=== PATIENT | male | born 1935 | race American Indian/Alaskan Native ===

== ENCOUNTER 2017-04-04 08:40 | Emergency (ER) | payer MEDICARE ==
[2017-04-04 08:51] VITALS: BMI 23.3
[2017-04-04 09:05] VITALS: RESP 20
[2017-04-04 12:28] VITALS: BP 146/63; PULSE 85; TEMP 98.2; O2SAT 99
== END 2017-04-04 12:37 | disposition home or self-care (01) ==
LOC: C.ER 08:40
DX: N40.1 Benign prostatic hyperplasia with lower urinary tract symptoms (principal); R33.8 Other retention of urine

== ENCOUNTER 2017-05-02 06:12 | Inpatient (IN) | payer MEDICARE, MEDICAID ==
[2017-04-26 12:15] VITALS: BMI 22.1
[2017-05-02] MEDS ORDERED: cefTRIAXone IV 1 gm in Dextros 50 ML IVPB ONE (07:49)
[2017-05-02] MEDS ORDERED: Midazolam 2 MG/2 ML VIAL ONE (07:54)
[2017-05-02] MEDS ORDERED: Propofol 10 mg/ml Inj (20 ML) ONE (07:55)
[2017-05-02] MEDS ORDERED: Lactated Ringer's 1,000 ML IV ONE ×3 (08:00→11:30)
[2017-05-02] MEDS ORDERED: Gentamicin 80 mg in 0.9% NS 160 MG/200 ML BAG IVPB ONE (08:15)
[2017-05-02] MEDS ORDERED: Neostigmine Methylsulfate 3mg/3ml Syringe IV ONE (09:50)
[2017-05-02] MEDS: HYDROmorphone 0.5 mg/0.5 ml ISec IVP PRN ×4 (10:35→13:40)
--- NOTE | 2017-05-02 11:40 | PCM.SURG1 ---
Surgeon's Initial Post Op Note - Surgeon's Notes Surgeon: isaiah hinton Sub Plant Manager: kadie hinton Type of Anesthesia: General Endo Pre-Operative Diagnosis: urinary retention. bph Operative Findings: same Post-Operative Diagnosis: same Operation Performed: cystoscopy. sprapubic prostatectomy Specimen/Specimens Removed: urine. prostate Estimated Blood Loss: EBL {In ML}: 300 Blood Products Given: N/A Drains Used: Jayro Montez Post-Op Condition: Good Date of Surgery/Procedure: 05/02/17 Time of Surgery/Procedure: 10:00
--- NOTE | 2017-05-02 12:15 | CP.PCM.HP ---
<Logan Pinto - Last Filed: 05/02/17 15:06> History of Present Illness - History of Present Illness History of Present Illness: CC: "I'm recovering from surgery" HPI: This 81M with PMHx of BPH, Anemia, HTN, Renal Failure 2/2 urinary retention , HLD, DM, hx GI Bleed - sent to ED by daughter on 04/04/17 due to urinary retention 2/[address] Mcguire saw patient in the ED on 04/04, and plan was for patient to return home on a trial of Flomax, to be followed as an outpatient. He failed the Flomax trial, and returned to the ED today, 05/[address] Mcguire. Cystoscopy revealed severely enlarged prostate, leading to a successful suprapubic prostatectomy. He is recovering well, is receiving pain management, and admits his abdomen feels sore, rating the pain a 1/10. Of note, patient was seen at [facility] last month for renal failure secondary to BPH and urinary retention. He was in severe condition at that time, with a high level of acidosis requiring dialysis. Patient also c/o lower extremity swelling for the past week, since starting his new medication, Amlodipine 10mg PO qD. He denies any prior history of edema. Last BM was 2-3 days ago, however patient does not feel constipated. PMHx: BPH, Anemia, HTN, Renal Failure 2/2 urinary retention, HLD, DM, hx GI Bleed PSHx: suprapubic prostatectomy 05/02/17 Meds: see EMR Allergies: NKDA FamHx: Mom of appendicitis. Dad of pneumonia. SocHx: Tobacco 2ppd x8yrs (quit 1955); Denies ETOH or drug use. Lives in apartment alone, daughter lives down the road and visits. Ambulates with cane. Retired ict security specialist. PMD: none Review of Systems: -Gen: denies fever, chills, headache, lethargy, weakness. -HEENT: +dizziness; denies change in vision, change in hearing, sore throat, dysphagia, nasal congestion, mucous. -Cardio: denies chest pain, palpitations, lower extremity edema, orthopnea. -Resp: denies cough, dyspnea, hemoptysis, wheezing, pain on inspiration. -GI: +abdominal pain/soreness (1/10 pain), +nausea; denies vomiting, diarrhea/ constipation, hematochezia, hematemesis. -: +hx urinary frequency, +change in urinary stream; denies dysuria, incontinence. -MSK: denies back pain, muscle weakness, radiating pain. -Skin: denies itching, rash, lesions. -Neuro: denies confusion, numbness, tingling, focal weakness, radicular pain, syncope. -Psych: denies anxiety, depression, H/I, S/I, hallucinations. Present on Admission - Present on Admission Any Indicators Present on Admission: No Past Patient History - Past Medical History & Family History Past Medical History?: Yes - Past Social History Smoking Status: Former Smoker - CARDIAC Hx Cardiac Disorders: Yes Hx Hypertension: Yes - PULMONARY Hx Respiratory Disorders: No - NEUROLOGICAL Hx Neurological Disorder: Yes Other/Comment: HX: NEUROPATHY - HEENT Hx HEENT Problems: No - ENDOCRINE/METABOLIC Hx Endocrine Disorders: Yes Hx Diabetes Mellitus Type 2: Yes (SEE TEXT) Other/Comment: DAUGHTER SO DENIES DIABETES FOR PATIENT-"THEY SAID IT BUT HIS SUGAR WAS ALWAYS OK.."- NO DIABETIC MEDS. OF 04/26/17. - HEMATOLOGICAL/ONCOLOGICAL Hx Blood Disorders: Yes Hx Anemia: Yes Hx Blood Transfusions: Yes Hx Blood Transfusion Reaction: No - INTEGUMENTARY Hx Dermatological Problems: No - MUSCULOSKELETAL/RHEUMATOLOGICAL Hx Musculoskeletal Disorders: Yes Hx Unsteady Gait: Yes (PT. USES CANE) - GASTROINTESTINAL Hx Gastrointestinal Disorders: Yes Hx Gastroesophageal Reflux: Yes Other/Comment: HX: "GASTROINTESTIONAL HEMORRHAGE,UNSPECIFIED"AND PER THERESA LOJA NOT SURE IF UPPER ABD. OR LOWER ABD. BLEEDING. - GENITOURINARY/GYNECOLOGICAL Hx Genitourinary Disorders: Yes Hx Prostate Problems: Yes Other/Comment: HX:"OBSTRUCTIVE AND REFLUX UROPATHY,UNSPECIFIED". HX: URINARY RETENTION - PSYCHIATRIC Hx Substance Use: No - SURGICAL HISTORY Hx Surgeries: Yes Hx Herniorrhaphy: Yes (INGUINAL (?RIGHT SIDE)) - ANESTHESIA Hx Anesthesia: Yes Hx Anesthesia Reactions: No Meds Allergies/Adverse Reactions: Allergies Allergy/AdvReac Type Severity Reaction Status Date / Time No Known Allergies Allergy Verified 04/04/17 08:49 Physical Exam - Constitutional Appears: Non-toxic, No Acute Distress - Head Exam Head Exam: ATRAUMATIC, NORMAL INSPECTION - Eye Exam Eye Exam: EOMI, Normal appearance, PERRL Pupil Exam: NORMAL ACCOMODATION - ENT Exam ENT Exam: Mucous Membranes Dry - Neck Exam Neck exam: Positive for: Normal Inspection. Negative for: Lymphadenopathy, Tenderness - Respiratory Exam Respiratory Exam: Clear to Auscultation Bilateral, NORMAL BREATHING PATTERN. absent: Wheezes, Respiratory Distress - Cardiovascular Exam Cardiovascular Exam: REGULAR RHYTHM - GI/Abdominal Exam GI & Abdominal Exam: Diminished Bowel Sounds, Tenderness (mild, diffuse). absent: Distended, Firm - Exam Additional comments: CBI intact, light sanguineous output Bandages C/D/I. - Extremities Exam Extremities exam: Positive for: pedal edema (mild, 1+), pedal pulses present. Negative for: tenderness - Back Exam Back exam: NORMAL INSPECTION. absent: CVA tenderness (L), CVA tenderness (R), paraspinal tenderness - Neurological Exam Neurological exam: Alert, CN II-XII Intact, Normal Gait, Oriented x3, Reflexes Normal - Psychiatric Exam Psychiatric exam: Normal Affect, Normal Mood - Skin Skin Exam: Dry, Intact, Normal Color, Warm Results - Vital Signs Recent Vital Signs: Last Vital Signs Temp 96 F L 05/02/17 10:15 Pulse 88 05/02/17 10:15 Resp 9 L 05/02/17 10:15 BP 148/75 05/02/17 10:15 Pulse Ox 100 05/02/17 10:15 - Labs Result Diagrams: 05/02/17 13:09 05/02/17 13:09 Labs: Laboratory Results - last 24 hr 05/02/17 07:26 Blood Type A POSITIVE Blood Type Confirm A POSITIVE Antibody Screen Negative Assessment & Plan - Assessment and Plan (Free Text) Assessment: s/p Suprapubic Prostatectomy 2/2 BPH - Urology consult, Dr. Shae Mcguire, f/u recs - Cystoscopy revealed severely enlarged prostate with outflow obstruction - Rocephin 1Gm IVPB qD (start 05/03) - Morphine 4mg IVP Q4H PRN, pain moderate - Colace 100mg PO TID - LR 150cc/hr Hypertension - BP 137/70 - Continue Amlodipine 10mg qD in am. - Consider switching to alternate agent 2/2 mild LE edema - Cardiology Consult, Dr. Higgins, f/u recs - previously saw pt. and cleared for surgery. Lower extremity swelling - recent onset likely 2/2 starting Amlodipine 1 week ago. - f/u b/l LE dopplers Anemia - patients base line Hgb from prior [facility] visit is 8.9 - Continue Ferrous Sulfate 325mg PO qD (start in am) Hx Diabetes Mellitus - f/u A1c Hx Hyperlipidemia - hold crestor due to prior renal failure 2/2 BPH + urinary retention. - f/u FLP Prophylaxis -SCDs -C/I chemical anticoagulation 2/2 bleeding on CBI -MVI (home med) - Date & Time Date: 05/02/17 Time: 12:15 <Yun Rosenbaum V - Last Filed: 05/02/17 21:42> Results - Vital Signs Recent Vital Signs: Last Vital Signs Temp 98.2 F 05/02/17 18:41 Pulse 110 H 05/02/17 18:41 Resp 20 05/02/17 18:41 BP 144/66 05/02/17 18:41 Pulse Ox 100 05/02/17 18:41 - Labs Result Diagrams: 05/02/17 13:09 05/02/17 13:09 Labs: Laboratory Results - last 24 hr 05/02/17 05/02/17 05/02/17 07:26 12:25 13:09 WBC 9.1 RBC 2.98 L Hgb 8.6 L Hct 26.8 L MCV 89.9 MCH 28.9 MCHC 32.1 L RDW 16.0 H Plt Count 183 D MPV 9.1 Neut % (Auto) 72.3 Lymph % (Auto) 17.[address] [place] % (Auto) 7.8 Eos % (Auto) 2.3 Baso % (Auto) 0.5 Neut # 6.6 Lymph # 1.6 [place] # 0.7 Eos # 0.2 Baso # 0.0 Sodium Potassium Chloride Carbon Dioxide Anion Gap BUN Creatinine Est GFR ( Amer) Est GFR (Non-Af Amer) POC Glucose (mg/dL) Random Glucose Calcium Phosphorus Magnesium Total Bilirubin AST ALT Alkaline Phosphatase Total Protein Albumin Globulin Albumin/Globulin Ratio Urine Color Yellow Urine Clarity Hazy Urine pH 5.0 Ur Specific [place] 1.010 Urine Protein 1+ H Urine Glucose (UA) Normal Urine Ketones Negative Urine Blood 3+ H Urine Nitrate Negative Urine Bilirubin Negative Urine Urobilinogen Normal Ur Leukocyte Esterase 3+ H Urine WBC (Auto) 323 H Urine RBC (Auto) 58 H Urine WBC Clumps (Auto) Many H Urine Bacteria Occ H Blood Type A POSITIVE Blood Type Confirm A POSITIVE Antibody Screen Negative 05/02/17 05/02/17 13:09 16:42 WBC RBC Hgb Hct MCV MCH MCHC RDW Plt Count MPV Neut % (Auto) Lymph % (Auto) [place] % (Auto) Eos % (Auto) Baso % (Auto) Neut # Lymph # [place] # Eos # Baso # Sodium 141 Potassium 4.3 Chloride 103 Carbon Dioxide 26 Anion Gap 16 BUN 33 H Creatinine 2.0 H Est GFR ( Amer) 39 Est GFR (Non-Af Amer) 32 POC Glucose (mg/dL) 126 H Random Glucose 128 H Calcium 9.1 Phosphorus 5.9 H Magnesium 2.0 Total Bilirubin 0.7 AST 19 ALT 36 Alkaline Phosphatase 72 Total Protein 6.6 Albumin 3.0 L Globulin 3.6 Albumin/Globulin Ratio 0.8 L Urine Color Urine Clarity Urine pH Ur Specific [place] Urine Protein Urine Glucose (UA) Urine Ketones Urine Blood Urine Nitrate Urine Bilirubin Urine Urobilinogen Ur Leukocyte Esterase Urine WBC (Auto) Urine RBC (Auto) Urine WBC Clumps (Auto) Urine Bacteria Blood Type Blood Type Confirm Antibody Screen Attending/Attestation - Attestation I have personally seen and examined this patient.: Yes I have fully participated in the care of the patient.: Yes I have reviewed all pertinent clinical information: Yes Notes (Text): Patient seen, examined, and case discussed with day-time resident. Patient seen in PACU s/p suprapubic prostatectomy POD 0 for benign prostate hyperplasia causing obstructive uropathy and hx of urinary retention failing PO medications. Patient permits us to speak regarding his medical information in front of his daughter. Patient reports soreness over surgical site but remains in good spirits. Patient did not take any medications today. Patient reports he has b/l leg swelling limited to the ankles since prior hospitalization. Patient reports he was recently started on Norvasc; possible contributing side effect edema. Patient and patient's daughter at bedside confirm he does not have a PMD; but did see a cyber security consultant prior to procedure for clearance. Discussed with urology, patient had recent [facility] hospitalization including acute renal failure, severe acidosis; and recovered in spite of severity during hospitalization. Reviewed preoperative labs included in patient's chart: Hgb is low and Cr1.0; Repeat labs today. EBL: 400cc per discussion with PACU nurse. Nephrology consulted; given rise in Creatinine: 2.0, hx of obstructive uropathy , secondary to enlarged prostate Patient admitted under the hospitalist service. Urology on board. Will hold patient's norvasc given trace edema. Order LE venous duplex b/l rule out DVT. Hold anticoagulation secondary to history of GI bleed per review of the report. Patient's EF: above 60% noted in stress test prior to procedure. Assessment/Plan 1) Obstructive uropathy secondary to Enlarged Prostate s/p Suprapubic Prostatectomy POD 0 - Urology consult, Dr. Shae Mcguire; case discussed with urology - Nephrology consult, Dr. Abdalla-->f/u consult - Patient has aguillon in placed and currently on CBI per urology. - Cystoscopy revealed severely enlarged prostate with outflow obstruction - Rocephin 1Gm IVPB qD (start 05/03/17) - Morphine 4mg IVP Q4H PRN, pain moderate per urology - Colace 100mg PO TID - LR 150cc/hr -Surgery management regarding prostatectomy per urology (prepost/intraoperative/ postoperative) 2) Hypertension - BP 137/70 without BP medications - possible d/c Amlodipine 10mg qD given mild lower extremity edema; will reassess in AM - Cardiology Consult, Dr. Higgins, f/u recs - previously saw pt. and cleared for surgery. Stress test included in the chart 3) Lower extremity swelling - possible due to medication side effect: Norvasc - f/u b/l LE dopplers r/o DVT given recent hospitalization 4) Anemia, hx of Anemia - patients base line Hgb from prior [facility] visit is 8.9 - Continue Ferrous Sulfate 325mg PO qD (start in am) - No blood transfusion given during procedure 5) Hx Diabetes Mellitus - f/u A1c - Accuchecks QAC and HS 6) Hx Hyperlipidemia - hold crestor due to prior renal failure 2/2 BPH + urinary retention. - f/u FLP in AM 7) Prophylaxis -hold SCDs until dopplers are completed r/o dvt -C/I chemical anticoagulation 2/2 bleeding on CBI -MVI (home med)
[2017-05-02 12:38] LABS: RBC URINE 58 /hpf (0-3); URINE BACTERIA OCC (<OCC); URINE BILIRUBIN NEGATIVE (NEGATIVE); URINE BLOOD 3+ (NEGATIVE); URINE COLOR Yellow (YELLOW); URINE GLUCOSE (UA) NORMAL (Normal); URINE KETONE NEGATIVE (NEGATIVE); URINE LEUKOCYTE ESTERASE 3+ Leu/uL (Negative); URINE PROTEIN 1+ mg/dL (NEGATIVE); URINE UROBILINOGEN NORMAL mg/dL (0.2-1.0); WBC CLUMPS MANY /hpf; WBC URINE 323 /hpf (0-5)
[2017-05-02 13:26] LABS: BASO % 0.5 % (0.0-2.0); EOS # 0.2 K/uL (0.0-0.7); EOS % 2.3 % (0.0-4.0); HEMATOCRIT 26.8 % (35.0-51.0); LYMPH # 1.6 K/uL (1.0-4.3); LYMPH % 17.1 % (20.0-40.0); MEAN CELL VOLUME 89.9 fL (80.0-94.0); MEAN CORPUSCULAR HEMOGLOBIN 28.9 pg (27.0-31.0); MEAN CORPUSCULAR HGB CONC 32.1 g/dL (33.0-37.0); MEAN PLATELET VOLUME 9.1 fL (7.2-11.7); MONO # 0.7 K/uL (0.0-0.8); MONO % 7.8 % (0.0-10.0); WHITE BLOOD COUNT 9.1 K/uL (4.8-10.8)
[2017-05-02 13:29] LABS: POTASSIUM 4.3 mmol/L (3.6-5.2)
[2017-05-02 13:31] LABS: ALB/GLOB RATIO 0.8 (1.0-2.1); BILIRUBIN,TOTAL 0.7 mg/dL (0.2-1.3); TOTAL PROTEIN 6.6 g/dL (6.3-8.3)
[2017-05-02 13:32] LABS: CALCIUM 9.1 mg/dl (8.6-10.4); PHOSPHOROUS 5.9 mg/dL (2.5-4.5)
[2017-05-02] MEDS ORDERED: HYDROmorphone 0.5 mg/0.5 ml ISec ONE (13:37)
[2017-05-02] MEDS ORDERED: Albuterol HFA 90 mcg/actuation (8 g) ONE (13:50)
[2017-05-02] MEDS: Lactated Ringer's 1,000 ML IV SCH (17:30)
[2017-05-02 22:58] LABS: IRON 17 ug/dL (49-181)
[2017-05-03] MEDS: Lactated Ringer's 1,000 ML IV SCH ×5 (00:07→22:00)
[2017-05-03 08:02] LABS: BASO % 0.4 % (0.0-2.0); EOS # 0.1 K/uL (0.0-0.7); EOS % 0.7 % (0.0-4.0); HEMATOCRIT 22.4 % (35.0-51.0); LYMPH # 1.4 K/uL (1.0-4.3); LYMPH % 11.9 % (20.0-40.0); MEAN CELL VOLUME 89.5 fL (80.0-94.0); MEAN CORPUSCULAR HGB CONC 32.4 g/dL (33.0-37.0); MEAN PLATELET VOLUME 9.6 fL (7.2-11.7); MONO # 0.9 K/uL (0.0-0.8); MONO % 7.5 % (0.0-10.0); WHITE BLOOD COUNT 11.5 K/uL (4.8-10.8)
[2017-05-03 08:14] LABS: CHLORIDE 100 mmol/L (98-107); SODIUM 137 mmol/L (132-148)
[2017-05-03 08:15] LABS: POTASSIUM 4.4 mmol/L (3.6-5.2)
[2017-05-03 08:16] LABS: BILIRUBIN,TOTAL 1.1 mg/dL (0.2-1.3); GFR AFRICAN-AMERICAN 50
[2017-05-03 08:17] LABS: ALB/GLOB RATIO 0.8 (1.0-2.1); ALKALINE PHOSPHATASE 61 U/L (38-126); ALT/SGPT 30 U/L (21-72); AST/SGOT 16 U/L (17-59); BLOOD UREA NITROGEN 23 mg/dL (9-20); CARBON DIOXIDE 26 mmol/L (22-30); GLUCOSE,RANDOM 109 mg/dL (75-110); PHOSPHOROUS 5.4 mg/dL (2.5-4.5); TOTAL PROTEIN 6.3 g/dL (6.3-8.3)
[2017-05-03 08:18] LABS: CALCIUM 8.8 mg/dl (8.6-10.4); MAGNESIUM 1.6 mg/dL (1.6-2.3)
[2017-05-03] MEDS: Multivitamin With Minerals Tab PO SCH (08:56)
[2017-05-03 09:24] LABS: FOLATE > 20.0 ng/mL
[2017-05-03] MEDS ORDERED: cefTRIAXone IV 1 gm in Dextros 50 ML IVPB SCH (10:00)
--- NOTE | 2017-05-03 10:31 | PCM.URO ---
Urology Progress Note - General General: No Complaints, Tolerating Diet - Subjective Abdominal Pain: Yes (much less today) Flank Pain: No Nausea: No Vomiting: No Hematuria: Yes (slight, clears promptly with irrigation) Dsypnea: No Chest Pain: No Fever & Chills: No Other: In good spirits. fairly comfortable - Objective Lab Results Last 24 Hours: Laboratory Results - last 24 hr 05/02/17 05/02/17 05/02/17 12:25 13:09 13:09 WBC 9.1 RBC 2.98 L Hgb 8.6 L Hct 26.8 L MCV 89.9 MCH 28.9 MCHC 32.1 L RDW 16.0 H Plt Count 183 D MPV 9.1 Neut % (Auto) 72.3 Lymph % (Auto) 17.1 L [place] % (Auto) 7.8 Eos % (Auto) 2.3 Baso % (Auto) 0.5 Neut # 6.6 Lymph # 1.6 Clarke # 0.7 Eos # 0.2 Baso # 0.0 Retic Count Sodium 141 Potassium 4.3 Chloride 103 Carbon Dioxide 26 Anion Gap 16 BUN 33 H Creatinine 2.0 H Est GFR ( Amer) 39 Est GFR (Non-Af Amer) 32 POC Glucose (mg/dL) Random Glucose 128 H Hemoglobin A1c Calcium 9.1 Phosphorus 5.9 H Magnesium 2.0 Iron TIBC % Saturation Ferritin Total Bilirubin 0.7 AST 19 ALT 36 Alkaline Phosphatase 72 Total Protein 6.6 Albumin 3.0 L Globulin 3.6 Albumin/Globulin Ratio 0.8 L Vitamin B12 Folate Urine Color Yellow Urine Clarity Hazy Urine pH 5.0 Ur Specific [place] 1.010 Urine Protein 1+ H Urine Glucose (UA) Normal Urine Ketones Negative Urine Blood 3+ H Urine Nitrate Negative Urine Bilirubin Negative Urine Urobilinogen Normal Ur Leukocyte Esterase 3+ H Urine WBC (Auto) 323 H Urine RBC (Auto) 58 H Urine WBC Clumps (Auto) Many H Urine Bacteria Occ H 05/02/17 05/02/17 05/03/17 16:42 22:44 07:53 WBC 11.5 H RBC 2.51 L Hgb 7.3 L Hct 22.4 L MCV 89.5 MCH 29.0 MCHC 32.4 L RDW 16.0 H Plt Count 166 MPV 9.6 Neut % (Auto) 79.5 H Lymph % (Auto) 11.9 L [place] % (Auto) 7.5 Eos % (Auto) 0.7 Baso % (Auto) 0.4 Neut # 9.2 H Lymph # 1.4 [place] # 0.9 H Eos # 0.1 Baso # 0.0 Retic Count Sodium Potassium Chloride Carbon Dioxide Anion Gap BUN Creatinine Est GFR ( Amer) Est GFR (Non-Af Amer) POC Glucose (mg/dL) 126 H Random Glucose Hemoglobin A1c Calcium Phosphorus Magnesium Iron 17 L TIBC 251 % Saturation 7 L Ferritin Total Bilirubin AST ALT Alkaline Phosphatase Total Protein Albumin Globulin Albumin/Globulin Ratio Vitamin B12 Folate Urine Color Urine Clarity Urine pH Ur Specific [place] Urine Protein Urine Glucose (UA) Urine Ketones Urine Blood Urine Nitrate Urine Bilirubin Urine Urobilinogen Ur Leukocyte Esterase Urine WBC (Auto) Urine RBC (Auto) Urine WBC Clumps (Auto) Urine Bacteria 05/03/17 05/03/17 05/03/17 07:53 07:53 07:53 WBC RBC Hgb Hct MCV MCH MCHC RDW Plt Count MPV Neut % (Auto) Lymph % (Auto) [place] % (Auto) Eos % (Auto) Baso % (Auto) Neut # Lymph # [place] # Eos # Baso # Retic Count 1.4 Sodium 137 Potassium 4.4 Chloride 100 Carbon Dioxide 26 Anion Gap 15 BUN 23 H Creatinine 1.6 H Est GFR ( Amer) 50 Est GFR (Non-Af Amer) 42 POC Glucose (mg/dL) Random Glucose 109 Hemoglobin A1c 5.5 Calcium 8.8 Phosphorus 5.4 H Magnesium 1.6 Iron TIBC % Saturation Ferritin 113.0 Total Bilirubin 1.1 AST 16 L ALT 30 Alkaline Phosphatase 61 Total Protein 6.3 Albumin 2.8 L Globulin 3.5 Albumin/Globulin Ratio 0.8 L Vitamin B12 351 Folate > 20.0 Urine Color Urine Clarity Urine pH Ur Specific [place] Urine Protein Urine Glucose (UA) Urine Ketones Urine Blood Urine Nitrate Urine Bilirubin Urine Urobilinogen Ur Leukocyte Esterase Urine WBC (Auto) Urine RBC (Auto) Urine WBC Clumps (Auto) Urine Bacteria 05/03/17 07:53 WBC RBC Hgb Hct MCV MCH MCHC RDW Plt Count MPV Neut % (Auto) Lymph % (Auto) [place] % (Auto) Eos % (Auto) Baso % (Auto) Neut # Lymph # [place] # Eos # Baso # Retic Count Sodium Potassium Chloride Carbon Dioxide Anion Gap BUN Creatinine Est GFR ( Amer) Est GFR (Non-Af Amer) POC Glucose (mg/dL) Random Glucose Hemoglobin A1c Calcium Phosphorus Magnesium Iron TIBC 242 L % Saturation 5 L Ferritin Total Bilirubin AST ALT Alkaline Phosphatase Total Protein Albumin Globulin Albumin/Globulin Ratio Vitamin B12 Folate Urine Color Urine Clarity Urine pH Ur Specific [place] Urine Protein Urine Glucose (UA) Urine Ketones Urine Blood Urine Nitrate Urine Bilirubin Urine Urobilinogen Ur Leukocyte Esterase Urine WBC (Auto) Urine RBC (Auto) Urine WBC Clumps (Auto) Urine Bacteria Intake & Output: Intake & Output 05/02/17 05/03/17 05/03/17 18:59 06:59 18:59 Intake Total 600 6740 Output Total 680 8440 Balance -80 -1700 Intake: IV 600 Intake, IV Amount 2000 Right Forearm 2000 Oral 240 Other 4500 Output: Drainage 30 20 Abdomen 20 Urine 650 8420 3-way Urethral 2620 Other: Voiding Method 3-way Diaz with CBI Vital Signs: Vital Signs - 24 hr 05/02/17 05/02/17 05/02/17 10:30 10:45 11:00 Temperature 96.3 F L Pulse Rate 80 82 82 Respiratory 10 L 9 L 9 L Rate Blood Pressure 139/75 143/71 146/69 O2 Sat by Pulse 100 100 100 Oximetry 05/02/17 05/02/17 05/02/17 11:15 11:30 11:45 Temperature 97.2 F L Pulse Rate 81 80 82 Respiratory 9 L 8 L 10 L Rate Blood Pressure 132/66 127/65 137/70 O2 Sat by Pulse 100 100 100 Oximetry 05/02/17 05/02/17 05/02/17 12:00 12:30 13:40 Temperature Pulse Rate 85 84 89 Respiratory 9 L 10 L 12 Rate Blood Pressure 131/62 130/70 137/67 O2 Sat by Pulse 100 100 100 Oximetry 05/02/17 05/02/17 05/02/17 14:00 15:00 16:00 Temperature Pulse Rate 88 90 88 Respiratory 9 L 12 10 L Rate Blood Pressure 124/59 L 146/73 152/78 H O2 Sat by Pulse 100 100 99 Oximetry 05/02/17 05/02/17 05/02/17 17:00 18:00 18:41 Temperature 99.2 F 98.2 F Pulse Rate 100 H 105 H 110 H Respiratory 13 17 20 Rate Blood Pressure 152/71 H 167/76 H 144/66 O2 Sat by Pulse 99 98 100 Oximetry 05/02/17 05/03/17 05/03/17 23:40 04:15 08:09 Temperature 99.6 F 98.5 F 98.5 F Pulse Rate 95 H 80 Respiratory 20 20 Rate Blood Pressure 133/69 122/67 O2 Sat by Pulse 99 99 Oximetry - Physical Exam Abdominal Exam: Soft, Non-Tender, Non-Distended Dressing: Dry, Intact Back: No CVA Tenderness Genitalia: Without Inflammation Urine Color: Clear, [place] Extremities: Normal: Bilateral (no calf or thigh tenderness) - Male Phallus: Normal, Uncircumcised Scrotum: Normal Testes: Normal: Bilateral - Plan Advance Diet: Yes Wound Care: Yes Catheter Care: Yes Ambulation - Out of Bed: Yes Intake & Output: Yes Additional Information: imp: stable post-op day #1, p SPP. anemia - Date & Time of Note Date: 05/03/17 Time: 10:32
[2017-05-03] MEDS: Saccharomyces Boulardi 250 mg Cap PO SCH ×2 (13:00→18:35)
--- NOTE | 2017-05-03 13:07 | CP.PCM.CON ---
History of Present Illness - History of Present Illness History of Present Illness: The pt is an 81 year old man with urinary retention from an enlarged prostate, ATN, had temporary dialysis, cr has improved. Pt has suprapubic cystoscopy. No chest pain or MORIN. Pt was cleared for procedure by Dr Higgins. Pt has had HTN, given norvasc which has worked, but pt has leg edema. ECG pre-op demonstrated nsr, mild 1st degree av block. No known cad. Review of Systems - Review of Systems All systems: reviewed and no additional remarkable complaints except (as above) Past Patient History - Past Medical History & Family History Past Medical History?: Yes - Past Social History Smoking Status: Former Smoker - CARDIAC Hx Cardiac Disorders: Yes Hx Hypertension: Yes - PULMONARY Hx Respiratory Disorders: No - NEUROLOGICAL Hx Neurological Disorder: Yes Other/Comment: HX: NEUROPATHY - HEENT Hx HEENT Problems: No - ENDOCRINE/METABOLIC Hx Endocrine Disorders: Yes Hx Diabetes Mellitus Type 2: Yes (SEE TEXT) Other/Comment: DAUGHTER -PURVI DENIES DIABETES FOR PATIENT-"THEY SAID IT BUT HIS SUGAR WAS ALWAYS OK.."- NO DIABETIC MEDS. OF 04/26/17. - HEMATOLOGICAL/ONCOLOGICAL Hx Blood Disorders: Yes Hx Anemia: Yes Hx Blood Transfusions: Yes Hx Blood Transfusion Reaction: No - INTEGUMENTARY Hx Dermatological Problems: No - MUSCULOSKELETAL/RHEUMATOLOGICAL Hx Musculoskeletal Disorders: Yes Hx Falls: No Hx Unsteady Gait: Yes (PT. USES CANE) - GASTROINTESTINAL Hx Gastrointestinal Disorders: Yes Hx Gastroesophageal Reflux: Yes Other/Comment: HX: "GASTROINTESTIONAL HEMORRHAGE,UNSPECIFIED"AND PER DAUGHTER Gian LOJA NOT SURE IF UPPER ABD. OR LOWER ABD. BLEEDING. - GENITOURINARY/GYNECOLOGICAL Hx Genitourinary Disorders: Yes Hx Prostate Problems: Yes Other/Comment: HX:"OBSTRUCTIVE AND REFLUX UROPATHY,UNSPECIFIED". HX: URINARY RETENTION - PSYCHIATRIC Hx Substance Use: No - SURGICAL HISTORY Hx Surgeries: Yes Hx Herniorrhaphy: Yes (INGUINAL (?RIGHT SIDE)) - ANESTHESIA Hx Anesthesia: Yes Hx Anesthesia Reactions: No Meds Allergies/Adverse Reactions: Allergies Allergy/AdvReac Type Severity Reaction Status Date / Time No Known Allergies Allergy Verified 04/04/17 08:49 - Medications Medications: Current Medications Docusate Sodium (Colace) 100 mg PO TID [facility] Last Admin: 05/03/17 10:57 Dose: 100 mg Ferrous Sulfate (Feosol) 325 mg PO DAILY [facility] Last Admin: 05/03/17 10:57 Dose: 325 mg Lactated Ringer's (Lactated Ringer's) 1,000 mls @ 150 mls/hr IV .Q6H40M [facility] Last Admin: 05/03/17 11:21 Dose: 150 mls/hr Ceftriaxone Sodium (Rocephin Iv 1 Gm Duplex) 50 mls @ 100 mls/hr IVPB DAILY [facility] Last Admin: 05/03/17 10:58 Dose: 100 mls/hr Morphine Sulfate (Morphine) 4 mg IVP Q4 PRN PRN Reason: Pain, moderate (4-7) Last Admin: 05/03/17 04:39 Dose: 4 mg Multivitamins/Minerals (Therapeutic-M Tab) 1 tab PO 0800 [facility] Last Admin: 05/03/17 08:56 Dose: 1 tab Saccharomyces Boulardii (Florastor) 250 mg PO BID [facility] Physical Exam - Eye Exam Eye Exam: EOMI Pupil Exam: NORMAL ACCOMODATION - ENT Exam ENT Exam: Mucous Membranes Moist - Neck Exam Neck exam: Positive for: Full Rom - Respiratory Exam Respiratory Exam: Clear to Auscultation Bilateral, NORMAL BREATHING PATTERN - Cardiovascular Exam Cardiovascular Exam: REGULAR RHYTHM - GI/Abdominal Exam GI & Abdominal Exam: Normal Bowel Sounds Additional comments: suprapubic ostomy - Exam Exam: NORMAL INSPECTION External exam: NORMAL EXTERNAL EXAM - Extremities Exam Extremities exam: Positive for: pedal edema - Back Exam Back exam: NORMAL INSPECTION - Neurological Exam Neurological exam: Alert, CN II-XII Intact, Oriented x3 - Psychiatric Exam Psychiatric exam: Normal Affect, Normal Mood - Skin Skin Exam: Normal Color, Warm Additional comments: healed mid line sternal scar, pt says not from heart surgery, but from a prior accident Results - Vital Signs Recent Vital Signs: Last Vital Signs Temp 98.5 F 05/03/17 08:09 Pulse 80 05/03/17 08:09 Resp 20 05/03/17 08:09 BP 122/67 05/03/17 08:09 Pulse Ox 99 05/03/17 08:09 - Labs Result Diagrams: 05/03/17 07:53 05/03/17 07:53 Labs: Laboratory Results - last 24 hr 05/02/17 05/02/17 05/02/17 13:09 13:09 16:42 WBC 9.1 RBC 2.98 L Hgb 8.6 L Hct 26.8 L MCV 89.9 MCH 28.9 MCHC 32.1 L RDW 16.0 H Plt Count 183 D MPV 9.1 Neut % (Auto) 72.3 Lymph % (Auto) 17.1 L [place] % (Auto) 7.8 Eos % (Auto) 2.3 Baso % (Auto) 0.5 Neut # 6.6 Lymph # 1.6 S[place]y # 0.7 Eos # 0.2 Baso # 0.0 Retic Count Sodium 141 Potassium 4.3 Chloride 103 Carbon Dioxide 26 Anion Gap 16 BUN 33 H Creatinine 2.0 H Est GFR ( Amer) 39 Est GFR (Non-Af Amer) 32 POC Glucose (mg/dL) 126 H Random Glucose 128 H Hemoglobin A1c Calcium 9.1 Phosphorus 5.9 H Magnesium 2.0 Iron TIBC % Saturation Ferritin Total Bilirubin 0.7 AST 19 ALT 36 Alkaline Phosphatase 72 Total Protein 6.6 Albumin 3.0 L Globulin 3.6 Albumin/Globulin Ratio 0.8 L Vitamin B12 Folate 05/02/17 05/03/17 05/03/17 22:44 07:53 07:53 WBC 11.5 H RBC 2.51 L Hgb 7.3 L Hct 22.4 L MCV 89.5 MCH 29.0 MCHC 32.4 L RDW 16.0 H Plt Count 166 MPV 9.6 Neut % (Auto) 79.5 H Lymph % (Auto) 11.9 L [place] % (Auto) 7.5 Eos % (Auto) 0.7 Baso % (Auto) 0.4 Neut # 9.2 H Lymph # 1.4 S[place]y # 0.9 H Eos # 0.1 Baso # 0.0 Retic Count Sodium 137 Potassium 4.4 Chloride 100 Carbon Dioxide 26 Anion Gap 15 BUN 23 H Creatinine 1.6 H Est GFR ( Amer) 50 Est GFR (Non-Af Amer) 42 POC Glucose (mg/dL) Random Glucose 109 Hemoglobin A1c Calcium 8.8 Phosphorus 5.4 H Magnesium 1.6 Iron 17 L TIBC 251 % Saturation 7 L Ferritin 113.0 Total Bilirubin 1.1 AST 16 L ALT 30 Alkaline Phosphatase 61 Total Protein 6.3 Albumin 2.8 L Globulin 3.5 Albumin/Globulin Ratio 0.8 L Vitamin B12 351 Folate > 20.0 05/03/17 05/03/17 05/03/17 07:53 07:53 07:53 WBC RBC Hgb Hct MCV MCH MCHC RDW Plt Count MPV Neut % (Auto) Lymph % (Auto) [place] % (Auto) Eos % (Auto) Baso % (Auto) Neut # Lymph # [place]y # Eos # Baso # Retic Count 1.4 Sodium Potassium Chloride Carbon Dioxide Anion Gap BUN Creatinine Est GFR ( Amer) Est GFR (Non-Af Amer) POC Glucose (mg/dL) Random Glucose Hemoglobin A1c 5.5 Calcium Phosphorus Magnesium Iron TIBC 242 L % Saturation 5 L Ferritin Total Bilirubin AST ALT Alkaline Phosphatase Total Protein Albumin Globulin Albumin/Globulin Ratio Vitamin B12 Folate - EKG Data EKG Interpreted by: Myself (as above) Assessment & Plan - Assessment and Plan (Free Text) Assessment: 1. Pt has relative tachcyardia today due to anemia. 2. BP is controlled with norvasc. Mild to moderate leg edema, likely from renal insufficiency and possibly exacerbated by norvasc. Pt;s legs are elevated now and leg edema would probably worsen with ambulation. Will give a trial of cardezem instead, as pt is tachycardic, and CA channel jesse has worked to control BP.
--- NOTE | 2017-05-03 14:56 | CP.PCM.PN ---
<Kayden Camacho - Last Filed: 05/03/17 20:07> Subjective - Date & Time of Evaluation Date of Evaluation: 05/03/17 Time of Evaluation: 14:40 - Subjective Subjective: PGY1 Note for Dr. Rosenbaum HPI: Patient seen and examined at bedside. Doing well with no complaints at this time. Said it was a little difficult to sit up in bed but patient looks comfortable. Patient states he is passing gas but has not had a BM. Specifically denies chest pain or SOB. Denies N/V/D/F/chills. Objective - Vital Signs/Intake and Output Vital Signs (last 24 hours): Temp Pulse Resp BP Pulse Ox 98.5 F 80 20 122/67 99 05/03/17 08:09 05/03/17 08:09 05/03/17 08:09 05/03/17 08:09 05/03/17 08:09 Intake and Output: 05/03/17 05/03/17 06:59 18:59 Intake Total 6740 Output Total 8440 Balance -1700 - Medications Medications: Current Medications Diltiazem HCl (Cardizem Cd) 180 mg PO DAILY [facility] Docusate Sodium (Colace) 100 mg PO TID [facility] Last Admin: 05/03/17 13:13 Dose: 100 mg Ferrous Sulfate (Feosol) 325 mg PO DAILY [facility] Last Admin: 05/03/17 10:57 Dose: 325 mg Lactated Ringer's (Lactated Ringer's) 1,000 mls @ 150 mls/hr IV .Q6H40M [facility] Last Admin: 05/03/17 11:21 Dose: 150 mls/hr Ceftriaxone Sodium (Rocephin Iv 1 Gm Duplex) 50 mls @ 100 mls/hr IVPB DAILY [facility] Last Admin: 05/03/17 10:58 Dose: 100 mls/hr Morphine Sulfate (Morphine) 4 mg IVP Q4 PRN PRN Reason: Pain, moderate (4-7) Last Admin: 05/03/17 04:39 Dose: 4 mg Multivitamins/Minerals (Therapeutic-M Tab) 1 tab PO 0800 [facility] Last Admin: 05/03/17 08:56 Dose: 1 tab Saccharomyces Boulardii (Florastor) 250 mg PO BID [facility] Last Admin: 05/03/17 13:00 Dose: 250 mg - Labs Labs: 05/03/17 07:53 05/03/17 07:53 - Constitutional Appears: Well, Non-toxic, No Acute Distress - Head Exam Head Exam: ATRAUMATIC, NORMAL INSPECTION, NORMOCEPHALIC - Eye Exam Eye Exam: EOMI Pupil Exam: NORMAL ACCOMODATION - Neck Exam Neck Exam: Normal Inspection - Respiratory Exam Respiratory Exam: Clear to Ausculation Bilateral, NORMAL BREATHING PATTERN. absent: Rhonchi, Wheezes, Stridor - Cardiovascular Exam Cardiovascular Exam: REGULAR RHYTHM, Murmur (heard best over mitral area) - GI/Abdominal Exam GI & Abdominal Exam: Soft, Tenderness (moderate tenderness over incision site. dressing intact and looks clean dry and intact. JESSICA drain draining sanginous fluid. JESSICA drain hooked up to suction), Normal Bowel Sounds. absent: Distended - Exam Additional comments: aguillon in place with continous irrigation, blood in aguillon. 2100 output overnight - Extremities Exam Extremities Exam: Pedal Edema (mild swelling bilaterlaly). absent: Tenderness - Neurological Exam Neurological Exam: Alert, Awake, Oriented x3 - Psychiatric Exam Psychiatric exam: Normal Affect, Normal Mood - Skin Skin Exam: Dry, Intact, Normal Color, Warm Assessment and Plan - Assessment and Plan (Free Text) Assessment: s/p Suprapubic Prostatectomy 2/2 BPH * Urology (Shae Mcguire) * Cystoscopy revealed severely enlarged prostate with outflow obstruction * Rocephin 1Gm IVPB qD (start 05/03) * Morphine 4mg IVP Q4H PRN, pain moderate * Colace 100mg PO TID * LR 150cc/hr Hypertension * BP 137/70 * Amlodipine 10mg qD in am * Cardiology ([place]) * previosuly cleared patient for surgery Lower extremity swelling * LE doppler showed DVT of common fem on the L * Vascular surgery ([place]) * Surgery in AM for IVC filter Anemia * patients base line Hgb from prior [facility] visit is 8.9 * Ferrous Sulfate 325mg PO qD (start in am) Hx Diabetes Mellitus * A1c - 5.5 Hx Hyperlipidemia * hold crestor due to prior renal failure 2/2 BPH + urinary retention. * Lipid Panel PPX * C/I chemical anticoagulation 2/2 bleeding on CBI * IVC filter tomorrow * MVI (home med) <Yun Rosenbaum V - Last Filed: 05/04/17 03:21> Objective - Vital Signs/Intake and Output Vital Signs (last 24 hours): Temp Pulse Resp BP Pulse Ox 98.5 F 80 20 122/67 99 05/03/17 08:09 05/03/17 08:09 05/03/17 08:09 05/03/17 08:09 05/03/17 08:09 Intake and Output: 05/03/17 05/03/17 06:59 18:59 Intake Total 6740 2200 Output Total 8440 9400 Balance -1700 -7200 - Medications Medications: Current Medications Diltiazem HCl (Cardizem Cd) 180 mg PO DAILY [facility] Docusate Sodium (Colace) 100 mg PO TID [facility] Last Admin: 05/03/17 13:13 Dose: 100 mg Ferrous Sulfate (Feosol) 325 mg PO DAILY [facility] Last Admin: 05/03/17 10:57 Dose: 325 mg Lactated Ringer's (Lactated Ringer's) 1,000 mls @ 150 mls/hr IV .Q6H40M [facility] Last Admin: 05/03/17 11:21 Dose: 150 mls/hr Ceftriaxone Sodium (Rocephin Iv 1 Gm Duplex) 50 mls @ 100 mls/hr IVPB DAILY [facility] Last Admin: 05/03/17 10:58 Dose: 100 mls/hr Morphine Sulfate (Morphine) 4 mg IVP Q4 PRN PRN Reason: Pain, moderate (4-7) Last Admin: 05/03/17 04:39 Dose: 4 mg Multivitamins/Minerals (Therapeutic-M Tab) 1 tab PO 0800 [facility] Last Admin: 05/03/17 08:56 Dose: 1 tab Saccharomyces Boulardii (Florastor) 250 mg PO BID [facility] Last Admin: 05/03/17 13:00 Dose: 250 mg - Labs Labs: 05/03/17 07:53 05/03/17 07:53 Attending/Attestation - Attestation I have personally seen and examined this patient.: Yes I have fully participated in the care of the patient.: Yes I have reviewed all pertinent clinical information, including history, physical exam and plan: Yes Notes (Text): This is late computer entry for 05/04/17. Patient seen, examined, and case discussed with day time resident. Patient seen during rounds today. Patient does not have acute complaints. Patient was seen and evaluated by urology today. Patient completed venous doppler which shows Left lower extremity DVT+. Will consult heme-onc in regards to anticoagulation vs IVC filter in light patient is post-operative day one of suprapubic prostatectomy. Discussed with urology, cannot be on therapeutic anticoagulation. Will consult vascular surgery regarding management of DVT and see if patient appropriate for IVC filter. Patient is anemic, with low iron stores; repeating CBC for this afternoon; may require PRBC transfusion. Patient has recent hospitalization at [facility] wherein he require blood transfusion per discussion with urology. Discussed with the patient this afternoon, regarding findings +DVT over left lower extremity. Follow-up: Discussed with vascular surgery scheduled for IVC filter in the morning. Discussed with heme-onc, patient is high risk for bleeding in regards anticoagulation given hx of GI bleed, recent surgical procedure, recommending for IVC filter. F/u Hgb: 7.2. Patient to be type and cross 1 unit of PRBC to be transfused prior to OR tomorrow. Discussed with urology, Dr Shae Mcguire regarding follow-up conversations. Assessment/Plan 1) Obstructive uropathy secondary to Enlarged Prostate s/p Suprapubic Prostatectomy POD 1 - Urology consult, Dr. Shae Mcguire; case discussed with urology - Nephrology consult, Dr. Abdalla-->f/u consult - Patient has aguillon in placed and currently on CBI per urology. - Cystoscopy revealed severely enlarged prostate with outflow obstruction - Rocephin 1Gm IVPB qD (start 05/03/17) - Morphine 4mg IVP Q4H PRN, pain moderate per urology - Colace 100mg PO TID - LR 150cc/hr -Surgery management regarding prostatectomy per urology (prepost/intraoperative/ postoperative)-->per urology, cannot be on therapeutic anticoagulation-->will need to follow-up with heme-onc and vascular surgery regarding if appropriate for IVC filter and if DVT ppx dosing is beneficial for the patient. - f/u urine culture 2) Deep vein thrombosis - Left venous doppler: common femoral +DVT - Heme-onc consult: Dr. Angelic Geiger + dvt, anemia; s/p surgery postoperative day--> IVC filter - Vascular surgery: Dr. Gama reason: possible IVC filter in light of +DVT-- > IVC filter scheduled AM 3) Hypertension - BP 137/70 without BP medications - Patient started on Cardizem this morning; by cardiology; off Norvasc - Cardiology Consult, Dr. Higgins, f/u recs - previously saw pt. and cleared for urologic surgery. Stress test included in the chart (preop paperwork in chart) 4) Lower extremity swelling - Confirmed DVT+ per venous doppler - off Norvasc - will f/u heme-onc and vascular surgery-->discussed with both consultants--> IVC filter and patient is high risk for anticoagulation given hx of GI bleed? and recent urologic procedure 5) Anemia, hx of Anemia - patients base line Hgb from prior [facility] visit is 8.9-->7.3-->7.2-->will transfuse 1 unit of PRBC overnight - Continue Ferrous Sulfate 325mg PO qD - No blood transfusion given during urologic procedure - iron studies are low for the patient-->discussed with heme-onc-->likely chronic not acute 5) Hx Diabetes Mellitus - A1c: 5.5 - Accuchecks QAC and HS - Controlled 6) Hx Hyperlipidemia - hold crestor due to prior renal failure 2/2 BPH + urinary retention. - f/u FLP in AM 7) Prophylaxis + DVT-->will need to discuss with heme-onc and vascular surgery -->IVC filter for 05/04/17; patient is high risk for bleeding if start anticoagulation in light of possible GI bleed hx and recent urologic procedure -C/I chemical anticoagulation 2/2 hx of GI bleed per review of record; and urologic procedure POD 1-->No SCDS -MVI (home med)
--- NOTE | 2017-05-03 16:45 | CP.PCM.CON ---
History of Present Illness - History of Present Illness History of Present Illness: SURGERY CONSULT NOTE FOR DR. STOKES Patient is a 81 yo M with PMHx significant for Anemia, Kidney disease, HLD, DM who is POD#1 from TURP for prostate CA. Surgery consulted for IVC filter placement. Patient was seen at bedside. Currently in NAD. Denies all complaints , including chest pain, SOB, abdominal pain, n/v/d or leg pain. No other complaints are noted at this time. Review of Systems - Hematologic/Lymphatic Additional comments: All negative unless noted by HPI Past Patient History - Past Medical History & Family History Past Medical History?: Yes - Past Social History Smoking Status: Former Smoker - CARDIAC Hx Cardiac Disorders: Yes Hx Hypertension: Yes - PULMONARY Hx Respiratory Disorders: No - NEUROLOGICAL Hx Neurological Disorder: Yes Other/Comment: HX: NEUROPATHY - HEENT Hx HEENT Problems: No - ENDOCRINE/METABOLIC Hx Endocrine Disorders: Yes Hx Diabetes Mellitus Type 2: Yes (SEE TEXT) Other/Comment: DAUGHTER -PURVI DENIES DIABETES FOR PATIENT-"THEY SAID IT BUT HIS SUGAR WAS ALWAYS OK.."- NO DIABETIC MEDS. OF 04/26/17. - HEMATOLOGICAL/ONCOLOGICAL Hx Blood Disorders: Yes Hx Anemia: Yes Hx Blood Transfusions: Yes Hx Blood Transfusion Reaction: No - INTEGUMENTARY Hx Dermatological Problems: No - MUSCULOSKELETAL/RHEUMATOLOGICAL Hx Musculoskeletal Disorders: Yes Hx Falls: No Hx Unsteady Gait: Yes (PT. USES CANE) - GASTROINTESTINAL Hx Gastrointestinal Disorders: Yes Hx Gastroesophageal Reflux: Yes Other/Comment: HX: "GASTROINTESTIONAL HEMORRHAGE,UNSPECIFIED"AND PER DAUGHTER Gian LOJA NOT SURE IF UPPER ABD. OR LOWER ABD. BLEEDING. - GENITOURINARY/GYNECOLOGICAL Hx Genitourinary Disorders: Yes Hx Prostate Problems: Yes Other/Comment: HX:"OBSTRUCTIVE AND REFLUX UROPATHY,UNSPECIFIED". HX: URINARY RETENTION - PSYCHIATRIC Hx Substance Use: No - SURGICAL HISTORY Hx Surgeries: Yes Hx Herniorrhaphy: Yes (INGUINAL (?RIGHT SIDE)) - ANESTHESIA Hx Anesthesia: Yes Hx Anesthesia Reactions: No Meds Allergies/Adverse Reactions: Allergies Allergy/AdvReac Type Severity Reaction Status Date / Time No Known Allergies Allergy Verified 04/04/17 08:49 - Medications Medications: Current Medications Diltiazem HCl (Cardizem Cd) 180 mg PO DAILY [facility] Docusate Sodium (Colace) 100 mg PO TID [facility] Last Admin: 05/03/17 13:13 Dose: 100 mg Ferrous Sulfate (Feosol) 325 mg PO DAILY [facility] Last Admin: 05/03/17 10:57 Dose: 325 mg Ceftriaxone Sodium (Rocephin Iv 1 Gm Duplex) 50 mls @ 100 mls/hr IVPB DAILY [facility] Last Admin: 05/03/17 10:58 Dose: 100 mls/hr Lactated Ringer's (Lactated Ringer's) 1,000 mls @ 75 mls/hr IV .[id number] [facility] Morphine Sulfate (Morphine) 4 mg IVP Q4 PRN PRN Reason: Pain, moderate (4-7) Last Admin: 05/03/17 04:39 Dose: 4 mg Multivitamins/Minerals (Therapeutic-M Tab) 1 tab PO 0800 [facility] Last Admin: 05/03/17 08:56 Dose: 1 tab Saccharomyces Boulardii (Florastor) 250 mg PO BID [facility] Last Admin: 05/03/17 13:00 Dose: 250 mg Physical Exam - Constitutional Appears: Well, Non-toxic, No Acute Distress - Head Exam Head Exam: ATRAUMATIC, NORMOCEPHALIC - Eye Exam Eye Exam: EOMI, PERRL - Respiratory Exam Respiratory Exam: Clear to Auscultation Bilateral, NORMAL BREATHING PATTERN. absent: Respiratory Distress - Cardiovascular Exam Cardiovascular Exam: REGULAR RHYTHM, +S1, +S2 - GI/Abdominal Exam GI & Abdominal Exam: Soft. absent: Distended, Firm, Guarding, Tenderness Additional comments: dressing in suprapubic region CDI - Extremities Exam Extremities exam: Negative for: calf tenderness, pedal edema, tenderness - Neurological Exam Neurological exam: Alert, Oriented x3 - Skin Skin Exam: Dry, Intact, Normal Color, Warm Results - Vital Signs Recent Vital Signs: Last Vital Signs Temp 98.9 F 05/03/17 15:54 Pulse 93 H 05/03/17 15:54 Resp 18 05/03/17 15:54 BP 124/64 05/03/17 15:54 Pulse Ox 99 05/03/17 15:54 - Labs Result Diagrams: 05/03/17 07:53 05/03/17 07:53 Labs: Laboratory Results - last 24 hr 05/02/17 05/02/17 05/03/17 16:42 22:44 07:53 WBC 11.5 H RBC 2.51 L Hgb 7.3 L Hct 22.4 L MCV 89.5 MCH 29.0 MCHC 32.4 L RDW 16.0 H Plt Count 166 MPV 9.6 Neut % (Auto) 79.5 H Lymph % (Auto) 11.9 L [place] % (Auto) 7.5 Eos % (Auto) 0.7 Baso % (Auto) 0.4 Neut # 9.2 H Lymph # 1.4 Lake # 0.9 H Eos # 0.1 Baso # 0.0 Retic Count Sodium Potassium Chloride Carbon Dioxide Anion Gap BUN Creatinine Est GFR ( Amer) Est GFR (Non-Af Amer) POC Glucose (mg/dL) 126 H Random Glucose Hemoglobin A1c Calcium Phosphorus Magnesium Iron 17 L TIBC 251 % Saturation 7 L Ferritin Total Bilirubin AST ALT Alkaline Phosphatase Total Protein Albumin Globulin Albumin/Globulin Ratio Vitamin B12 Folate 05/03/17 05/03/17 05/03/17 07:53 07:53 07:53 WBC RBC Hgb Hct MCV MCH MCHC RDW Plt Count MPV Neut % (Auto) Lymph % (Auto) [place] % (Auto) Eos % (Auto) Baso % (Auto) Neut # Lymph # Lake # Eos # Baso # Retic Count 1.4 Sodium 137 Potassium 4.4 Chloride 100 Carbon Dioxide 26 Anion Gap 15 BUN 23 H Creatinine 1.6 H Est GFR ( Amer) 50 Est GFR (Non-Af Amer) 42 POC Glucose (mg/dL) Random Glucose 109 Hemoglobin A1c 5.5 Calcium 8.8 Phosphorus 5.4 H Magnesium 1.6 Iron TIBC % Saturation Ferritin 113.0 Total Bilirubin 1.1 AST 16 L ALT 30 Alkaline Phosphatase 61 Total Protein 6.3 Albumin 2.8 L Globulin 3.5 Albumin/Globulin Ratio 0.8 L Vitamin B12 351 Folate > 20.0 05/03/17 07:53 WBC RBC Hgb Hct MCV MCH MCHC RDW Plt Count MPV Neut % (Auto) Lymph % (Auto) [place] % (Auto) Eos % (Auto) Baso % (Auto) Neut # Lymph # [place] # Eos # Baso # Retic Count Sodium Potassium Chloride Carbon Dioxide Anion Gap BUN Creatinine Est GFR ( Amer) Est GFR (Non-Af Amer) POC Glucose (mg/dL) Random Glucose Hemoglobin A1c Calcium Phosphorus Magnesium Iron TIBC 242 L % Saturation 5 L Ferritin Total Bilirubin AST ALT Alkaline Phosphatase Total Protein Albumin Globulin Albumin/Globulin Ratio Vitamin B12 Folate Assessment & Plan - Assessment and Plan (Free Text) Assessment: Pt is an 81yo M s/p TURP for prostate CA. POD#1. Now with DVTs confirmed by doppler. Consult for IVC filter Plan: -NPO, coags -Consent in chart -Scheduled for tomorrow 05/04/17 Further recs discuss with Dr. Natan Mcgee, PGY2
[2017-05-03 17:29] LABS: BASO % 0.2 % (0.0-2.0); EOS # 0.1 K/uL (0.0-0.7); EOS % 1.2 % (0.0-4.0); HEMATOCRIT 22.7 % (35.0-51.0); LYMPH # 1.5 K/uL (1.0-4.3); LYMPH % 12.7 % (20.0-40.0); MEAN CELL VOLUME 89.7 fL (80.0-94.0); MEAN CORPUSCULAR HEMOGLOBIN 28.4 pg (27.0-31.0); MEAN CORPUSCULAR HGB CONC 31.7 g/dL (33.0-37.0); MEAN PLATELET VOLUME 9.6 fL (7.2-11.7); MONO # 1.1 K/uL (0.0-0.8); RED CELL DISTRIBUTION WIDTH 15.8 % (11.5-14.5); WHITE BLOOD COUNT 11.9 K/uL (4.8-10.8)
--- NOTE | 2017-05-03 18:02 | CP.PCM.CON ---
History of Present Illness - History of Present Illness History of Present Illness: 81 yo M w/ no pmh (prior to past 2 months), presented for elective suprapubic prostectomy procedure which he underwent successfully yesterdsy; nephrology service being consulted for acute renal failure; Patient reports that he initially went to [facility] last month after feeling ill and apparently having gross hematuria? He was found to be in acute renal failure at the time with discussion about initiating dialysis which he eventually did not require (per patient and family , awaiting [facility] records); patient had aguillon placed and was discharged to rehab facility with aguillon in place; Patient reports feeling well since d/c from [facility]; toward the end of last month, patient was given a brief voiding trial which he failed and so aguillon was placed back; was released from rehab facility last week with aguillon still in place; Patient otherwise reports feeling well lately; ambulating without difficulty; denies any shortness of breath; had not noticed any leg swelling until it was pointed out to him; Review of Systems - Constitutional Constitutional: absent: Anorexia, Chills, Fever - EENT Eyes: absent: Change in Vision Nose/Mouth/Throat: Sore Throat - Cardiovascular Cardiovascular: absent: Chest Pain, Palpitations - Respiratory Respiratory: absent: Dyspnea on Exertion - Gastrointestinal Gastrointestinal: absent: Diarrhea, Nausea, Vomiting - Genitourinary Genitourinary: As Per HPI - Musculoskeletal Additional comments: Occasional R knee pain for which he takes naproxen about once a week; - Neurological Additional comments: no numbness in feet; - Psychiatric Psychiatric: absent: Anxiety Past Patient History - Past Medical History & Family History Past Medical History?: Yes Past Family History: Reviewed and not pertinent - Past Social History Smoking Status: Former Smoker - CARDIAC Hx Cardiac Disorders: Yes Hx Hypertension: Yes - PULMONARY Hx Respiratory Disorders: No - NEUROLOGICAL Hx Neurological Disorder: Yes Other/Comment: HX: NEUROPATHY - HEENT Hx HEENT Problems: No - ENDOCRINE/METABOLIC Hx Endocrine Disorders: Yes Hx Diabetes Mellitus Type 2: Yes (SEE TEXT) Other/Comment: DAUGHTER SO DENIES DIABETES FOR PATIENT-"THEY SAID IT BUT HIS SUGAR WAS ALWAYS OK.."- NO DIABETIC MEDS. OF 04/26/17. - HEMATOLOGICAL/ONCOLOGICAL Hx Blood Disorders: Yes Hx Anemia: Yes Hx Blood Transfusions: Yes Hx Blood Transfusion Reaction: No - INTEGUMENTARY Hx Dermatological Problems: No - MUSCULOSKELETAL/RHEUMATOLOGICAL Hx Musculoskeletal Disorders: Yes Hx Falls: No Hx Unsteady Gait: Yes (PT. USES CANE) - GASTROINTESTINAL Hx Gastrointestinal Disorders: Yes Hx Gastroesophageal Reflux: Yes Other/Comment: HX: "GASTROINTESTIONAL HEMORRHAGE,UNSPECIFIED"AND PER DAUGHTER - PURVI NOT SURE IF UPPER ABD. OR LOWER ABD. BLEEDING. - GENITOURINARY/GYNECOLOGICAL Hx Genitourinary Disorders: Yes Hx Prostate Problems: Yes Other/Comment: HX:"OBSTRUCTIVE AND REFLUX UROPATHY,UNSPECIFIED". HX: URINARY RETENTION - PSYCHIATRIC Hx Substance Use: No - SURGICAL HISTORY Hx Surgeries: Yes Hx Herniorrhaphy: Yes (INGUINAL (?RIGHT SIDE)) - ANESTHESIA Hx Anesthesia: Yes Hx Anesthesia Reactions: No Meds Allergies/Adverse Reactions: Allergies Allergy/AdvReac Type Severity Reaction Status Date / Time No Known Allergies Allergy Verified 04/04/17 08:49 - Medications Medications: Current Medications Diltiazem HCl (Cardizem Cd) 180 mg PO DAILY [facility] Docusate Sodium (Colace) 100 mg PO TID [facility] Last Admin: 05/03/17 13:13 Dose: 100 mg Ferrous Sulfate (Feosol) 325 mg PO DAILY [facility] Last Admin: 05/03/17 10:57 Dose: 325 mg Ceftriaxone Sodium (Rocephin Iv 1 Gm Duplex) 50 mls @ 100 mls/hr IVPB DAILY [facility] Last Admin: 05/03/17 10:58 Dose: 100 mls/hr Lactated Ringer's (Lactated Ringer's) 1,000 mls @ 75 mls/hr IV .[id number] [facility] Morphine Sulfate (Morphine) 4 mg IVP Q4 PRN PRN Reason: Pain, moderate (4-7) Last Admin: 05/03/17 04:39 Dose: 4 mg Multivitamins/Minerals (Therapeutic-M Tab) 1 tab PO 0800 [facility] Last Admin: 05/03/17 08:56 Dose: 1 tab Saccharomyces Boulardii (Florastor) 250 mg PO BID [facility] Last Admin: 05/03/17 13:00 Dose: 250 mg Physical Exam - Eye Exam Eye Exam: Normal appearance. absent: Scleral icterus - ENT Exam ENT Exam: Mucous Membranes Moist - Neck Exam Neck exam: Positive for: Normal Inspection. Negative for: Lymphadenopathy - Respiratory Exam Respiratory Exam: Clear to Auscultation Bilateral, NORMAL BREATHING PATTERN. absent: Rales, Rhonchi, Wheezes, Respiratory Distress - Cardiovascular Exam Cardiovascular Exam: REGULAR RHYTHM, +S1, +S2 - GI/Abdominal Exam GI & Abdominal Exam: Soft. absent: Distended Additional comments: lower abd/pelvic tenderness; - Exam Additional comments: aguillon in place with blood around orifice; - Extremities Exam Extremities exam: Positive for: pedal pulses present Additional comments: mild b/l lower leg edema; - Neurological Exam Neurological exam: Altered Additional comments: no foot numbness; - Psychiatric Exam Psychiatric exam: Normal Affect, Normal Mood - Skin Skin Exam: Normal Color, Warm Results - Vital Signs Recent Vital Signs: Last Vital Signs Temp 98.9 F 05/03/17 15:54 Pulse 93 H 05/03/17 15:54 Resp 18 05/03/17 15:54 BP 124/64 05/03/17 15:54 Pulse Ox 99 05/03/17 15:54 - Labs Result Diagrams: 05/03/17 17:06 05/03/17 07:53 Labs: Laboratory Results - last 24 hr 05/02/17 05/03/17 05/03/17 22:44 07:53 07:53 WBC 11.5 H RBC 2.51 L Hgb 7.3 L Hct 22.4 L MCV 89.5 MCH 29.0 MCHC 32.4 L RDW 16.0 H Plt Count 166 MPV 9.6 Neut % (Auto) 79.5 H Lymph % (Auto) 11.9 L Glynn % (Auto) 7.5 Eos % (Auto) 0.7 Baso % (Auto) 0.4 Neut # 9.2 H Lymph # 1.4 Glynn # 0.9 H Eos # 0.1 Baso # 0.0 Retic Count Sodium 137 Potassium 4.4 Chloride 100 Carbon Dioxide 26 Anion Gap 15 BUN 23 H Creatinine 1.6 H Est GFR ( Amer) 50 Est GFR (Non-Af Amer) 42 Random Glucose 109 Hemoglobin A1c Calcium 8.8 Phosphorus 5.4 H Magnesium 1.6 Iron 17 L TIBC 251 % Saturation 7 L Ferritin 113.0 Total Bilirubin 1.1 AST 16 L ALT 30 Alkaline Phosphatase 61 Total Protein 6.3 Albumin 2.8 L Globulin 3.5 Albumin/Globulin Ratio 0.8 L Vitamin B12 351 Folate > 20.0 0805/03/17 05/03/17 07:53 07:53 07:53 WBC RBC Hgb Hct MCV MCH MCHC RDW Plt Count MPV Neut % (Auto) Lymph % (Auto) Glynn % (Auto) Eos % (Auto) Baso % (Auto) Neut # Lymph # Glynn # Eos # Baso # Retic Count 1.4 Sodium Potassium Chloride Carbon Dioxide Anion Gap BUN Creatinine Est GFR ( Amer) Est GFR (Non-Af Amer) Random Glucose Hemoglobin A1c 5.5 Calcium Phosphorus Magnesium Iron TIBC 242 L % Saturation 5 L Ferritin Total Bilirubin AST ALT Alkaline Phosphatase Total Protein Albumin Globulin Albumin/Globulin Ratio Vitamin B12 Folate Assessment & Plan (1) Acute renal failure Assessment and Plan: In the setting of enlarged prostate with creat increasing from 1.0 late last month to 2.0 on admission; etiology is rise in serum creatinine is not completely clear without any imaging available as patient had aguillon in place during this interim; possibly with blood clots causing some degree of obstructive nephropathy; cannot rule out pre-renal component although history does not support this; Renal function now improving post-prostectomy with patient on IVF; -decreasing LR to 75 cc/hr (leg edema, htn) -avoid nephrotoxic agents -will check renal US to look for signs of chronic kidney disease Status: Acute (2) Urinary retention Assessment and Plan: Resolved with aguillon placement last month; agree with keeping continuous bladder irrigation to prevent blood clots from clogging aguillon; f/u with urology; Status: Acute (3) Anemia Assessment and Plan: Marked iron deficiency; consider IV iron v prbc transfusion (if hgb dropping further); f/u with heme; Status: Acute (4) HTN (hypertension) Assessment and Plan: Controlled on cardizem, continue same; Status: Acute
[2017-05-03 18:36] LABS: ABG ALLEN TEST POS; ARTERIAL BLOOD HGB O2 SAT 95.8 % (95.0-98.0); CARBOXYHEMOGLOBIN 2.7 % (0.5-1.5); DRAW SITE LRA; HHB 0.6 % (0.0-5.0); METHEMOGLOBIN 0.9 % (0.0-3.0)
--- NOTE | 2017-05-03 20:37 | CP.PCM.CON ---
History of Present Illness - History of Present Illness History of Present Illness: 81 year old male with a history of HTN, DM, recent hospitalization at [facility] [place] GI bleeding, BPH s/p prostatectomy, found to have a femoral DVT. The patient denies fevers and chills. He has no shortness of brath or chest pain. He notes to increased swelling of his legs. He does admit to immobility due to his recent hospitalization. Past medical history: HTN, DM, BPH, GI bleeding Past surgical history: Hernia repair, prostatectomy Family history: Dies hematologic and oncologic problems Social history: Former tobacco, denies alcohol and illicit drug use. Allergies: NKA Review of systems: All remaining review of systems including HEENT, cardiovascular, respiratory, gastrointestinal, genitourinary, musculoskeletal, dermatologic, neurologic, and psychiatric are negative unless mentioned in the HPI. Past Patient History - Past Medical History & Family History Past Medical History?: Yes Past Family History: Reviewed and not pertinent - Past Social History Smoking Status: Former Smoker - CARDIAC Hx Cardiac Disorders: Yes Hx Hypertension: Yes - PULMONARY Hx Respiratory Disorders: No - NEUROLOGICAL Hx Neurological Disorder: Yes Other/Comment: HX: NEUROPATHY - HEENT Hx HEENT Problems: No - ENDOCRINE/METABOLIC Hx Endocrine Disorders: Yes Hx Diabetes Mellitus Type 2: Yes (SEE TEXT) Other/Comment: DAUGHTER -PURVI DENIES DIABETES FOR PATIENT-"THEY SAID IT BUT HIS SUGAR WAS ALWAYS OK.."- NO DIABETIC MEDS. OF 04/26/17. - HEMATOLOGICAL/ONCOLOGICAL Hx Blood Disorders: Yes Hx Anemia: Yes Hx Blood Transfusions: Yes Hx Blood Transfusion Reaction: No - INTEGUMENTARY Hx Dermatological Problems: No - MUSCULOSKELETAL/RHEUMATOLOGICAL Hx Musculoskeletal Disorders: Yes Hx Falls: No Hx Unsteady Gait: Yes (PT. USES CANE) - GASTROINTESTINAL Hx Gastrointestinal Disorders: Yes Hx Gastroesophageal Reflux: Yes Other/Comment: HX: "GASTROINTESTIONAL HEMORRHAGE,UNSPECIFIED"AND PER DAUGHTER Gian LOJA NOT SURE IF UPPER ABD. OR LOWER ABD. BLEEDING. - GENITOURINARY/GYNECOLOGICAL Hx Genitourinary Disorders: Yes Hx Prostate Problems: Yes Other/Comment: HX:"OBSTRUCTIVE AND REFLUX UROPATHY,UNSPECIFIED". HX: URINARY RETENTION - PSYCHIATRIC Hx Substance Use: No - SURGICAL HISTORY Hx Surgeries: Yes Hx Herniorrhaphy: Yes (INGUINAL (?RIGHT SIDE)) - ANESTHESIA Hx Anesthesia: Yes Hx Anesthesia Reactions: No Meds Allergies/Adverse Reactions: Allergies Allergy/AdvReac Type Severity Reaction Status Date / Time No Known Allergies Allergy Verified 04/04/17 08:49 - Medications Medications: Current Medications Diltiazem HCl (Cardizem Cd) 180 mg PO DAILY [facility] Docusate Sodium (Colace) 100 mg PO TID [facility] Last Admin: 05/03/17 18:37 Dose: Not Given Ferrous Sulfate (Feosol) 325 mg PO DAILY [facility] Last Admin: 05/03/17 10:57 Dose: 325 mg Ceftriaxone Sodium (Rocephin Iv 1 Gm Duplex) 50 mls @ 100 mls/hr IVPB DAILY [facility] Last Admin: 05/03/17 10:58 Dose: 100 mls/hr Lactated Ringer's (Lactated Ringer's) 1,000 mls @ 75 mls/hr IV .[id number] [facility] Last Admin: 05/03/17 16:45 Dose: 75 mls/hr Morphine Sulfate (Morphine) 4 mg IVP Q4 PRN PRN Reason: Pain, moderate (4-7) Last Admin: 05/03/17 04:39 Dose: 4 mg Multivitamins/Minerals (Therapeutic-M Tab) 1 tab PO 0800 [facility] Last Admin: 05/03/17 08:56 Dose: 1 tab Saccharomyces Boulardii (Florastor) 250 mg PO BID [facility] Last Admin: 05/03/17 18:35 Dose: 250 mg Physical Exam - Head Exam Head Exam: ATRAUMATIC - Eye Exam Eye Exam: Normal appearance - ENT Exam ENT Exam: Mucous Membranes Dry - Respiratory Exam Respiratory Exam: NORMAL BREATHING PATTERN - Cardiovascular Exam Cardiovascular Exam: +S1, +S2 - GI/Abdominal Exam GI & Abdominal Exam: Normal Bowel Sounds - Extremities Exam Extremities exam: Positive for: pedal edema - Neurological Exam Neurological exam: Oriented x3 - Psychiatric Exam Psychiatric exam: Normal Affect, Normal Mood - Skin Skin Exam: Warm Results - Vital Signs Recent Vital Signs: Last Vital Signs Temp 98.9 F 05/03/17 15:54 Pulse 93 H 05/03/17 15:54 Resp 18 05/03/17 15:54 BP 124/64 05/03/17 15:54 Pulse Ox 99 05/03/17 15:54 - Labs Result Diagrams: 05/03/17 17:06 05/03/17 07:53 Labs: Laboratory Results - last 24 hr 05/02/17 05/03/17 05/03/17 22:44 07:53 07:53 WBC 11.5 H RBC 2.51 L Hgb 7.3 L Hct 22.4 L MCV 89.5 MCH 29.0 MCHC 32.4 L RDW 16.0 H Plt Count 166 MPV 9.6 Neut % (Auto) 79.5 H Lymph % (Auto) 11.9 L Dupage % (Auto) 7.5 Eos % (Auto) 0.7 Baso % (Auto) 0.4 Neut # 9.2 H Lymph # 1.4 Dupage # 0.9 H Eos # 0.1 Baso # 0.0 Retic Count Puncture Site pCO2 pO2 HCO3 ABG pH ABG Total CO2 ABG O2 Saturation ABG Base Excess ABG Hemoglobin ABG Carboxyhemoglobin POC ABG HHb (Measured) ABG Methemoglobin Bulmaro Test A-a O2 Difference Respiratory Index Hgb O2 Saturation FiO2 Sodium 137 Potassium 4.4 Chloride 100 Carbon Dioxide 26 Anion Gap 15 BUN 23 H Creatinine 1.6 H Est GFR ( Amer) 50 Est GFR (Non-Af Amer) 42 Random Glucose 109 Hemoglobin A1c Calcium 8.8 Phosphorus 5.4 H Magnesium 1.6 Iron 17 L TIBC 251 % Saturation 7 L Ferritin 113.0 Total Bilirubin 1.1 AST 16 L ALT 30 Alkaline Phosphatase 61 Total Protein 6.3 Albumin 2.8 L Globulin 3.5 Albumin/Globulin Ratio 0.8 L Vitamin B12 351 Folate > 20.0 05/03/17 05/03/17 05/03/17 07:53 07:53 07:53 WBC RBC Hgb Hct MCV MCH MCHC RDW Plt Count MPV Neut % (Auto) Lymph % (Auto) Dupage % (Auto) Eos % (Auto) Baso % (Auto) Neut # Lymph # Dupage # Eos # Baso # Retic Count 1.4 Puncture Site pCO2 pO2 HCO3 ABG pH ABG Total CO2 ABG O2 Saturation ABG Base Excess ABG Hemoglobin ABG Carboxyhemoglobin POC ABG HHb (Measured) ABG Methemoglobin Bulmaro Test A-a O2 Difference Respiratory Index Hgb O2 Saturation FiO2 Sodium Potassium Chloride Carbon Dioxide Anion Gap BUN Creatinine Est GFR ( Amer) Est GFR (Non-Af Amer) Random Glucose Hemoglobin A1c 5.5 Calcium Phosphorus Magnesium Iron TIBC 242 L % Saturation 5 L Ferritin Total Bilirubin AST ALT Alkaline Phosphatase Total Protein Albumin Globulin Albumin/Globulin Ratio Vitamin B12 Folate 05/03/17 05/03/17 17:06 18:30 WBC 11.9 H RBC 2.53 L Hgb 7.2 L Hct 22.7 L MCV 89.7 MCH 28.4 MCHC 31.7 L RDW 15.8 H Plt Count 154 MPV 9.6 Neut % (Auto) 76.9 H Lymph % (Auto) 12.7 L Dupage % (Auto) 9.0 Eos % (Auto) 1.2 Baso % (Auto) 0.2 Neut # 9.2 H Lymph # 1.5 Dupage # 1.1 H Eos # 0.1 Baso # 0.0 Retic Count Puncture Site Lra pCO2 38 pO2 77 L HCO3 27.2 ABG pH 7.46 H ABG Total CO2 28.2 H ABG O2 Saturation 99.4 H ABG Base Excess 2.9 ABG Hemoglobin 6.9 L ABG Carboxyhemoglobin 2.7 H POC ABG HHb (Measured) 0.6 ABG Methemoglobin 0.9 Bulmaro Test Pos A-a O2 Difference 25.0 Respiratory Index 0.3 Hgb O2 Saturation 95.8 FiO2 21.0 Sodium Potassium Chloride Carbon Dioxide Anion Gap BUN Creatinine Est GFR ( Amer) Est GFR (Non-Af Amer) Random Glucose Hemoglobin A1c Calcium Phosphorus Magnesium Iron TIBC % Saturation Ferritin Total Bilirubin AST ALT Alkaline Phosphatase Total Protein Albumin Globulin Albumin/Globulin Ratio Vitamin B12 Folate Assessment & Plan (1) DVT (deep venous thrombosis) Assessment and Plan: provoked from immobility from recent hospitalization pt reports to hematemesis which led to his recent hospitalization [place] [facility] given his recent prostatectomy, hematuria, and prior hematemesis, the patient is high risk for bleeding complications with anticoagulation I would recommend retrievable IVC filter placement recommend obtaining records from [facility] to evaluate how severe the patients GI bleeding was future determination of anticoagulation to be made once [facility] records reviewed and urologic surgery hemostasis. Status: Acute (2) Anemia Assessment and Plan: hematuria and surgical blood loss transfusion support PRN will check ferritin, retic count, b12, folate FOBT Thank you for this interesting consult. Status: Acute
[2017-05-03 21:19] LABS: INR 1.4
--- NOTE | 2017-05-04 06:18 | CP.PCM.PN ---
<Kayden Camacho - Last Filed: 05/04/17 06:19> Subjective - Date & Time of Evaluation Date of Evaluation: 05/04/17 Time of Evaluation: 06:18 - Subjective Subjective: PGY1 Note for Dr. Rosenbaum HPI: Objective - Vital Signs/Intake and Output Vital Signs (last 24 hours): Temp Pulse Resp BP Pulse Ox 98.7 F 86 20 122/71 98 05/04/17 04:44 05/04/17 04:44 05/04/17 04:44 05/04/17 04:44 05/03/17 23:13 Intake and Output: 05/03/17 05/04/17 18:59 06:59 Intake Total 2200 8730 Output Total 9400 8700 Balance -7200 30 - Medications Medications: Current Medications Diltiazem HCl (Cardizem Cd) 180 mg PO DAILY [facility] Docusate Sodium (Colace) 100 mg PO TID [facility] Last Admin: 05/03/17 18:37 Dose: Not Given Ferrous Sulfate (Feosol) 325 mg PO DAILY [facility] Last Admin: 05/03/17 10:57 Dose: 325 mg Ceftriaxone Sodium (Rocephin Iv 1 Gm Duplex) 50 mls @ 100 mls/hr IVPB DAILY [facility] Last Admin: 05/03/17 10:58 Dose: 100 mls/hr Lactated Ringer's (Lactated Ringer's) 1,000 mls @ 75 mls/hr IV .[id number] [facility] Last Admin: 05/03/17 22:00 Dose: 75 mls/hr Morphine Sulfate (Morphine) 4 mg IVP Q4 PRN PRN Reason: Pain, moderate (4-7) Last Admin: 05/03/17 04:39 Dose: 4 mg Multivitamins/Minerals (Therapeutic-M Tab) 1 tab PO 0800 [facility] Last Admin: 05/03/17 08:56 Dose: 1 tab Saccharomyces Boulardii (Florastor) 250 mg PO BID [facility] Last Admin: 05/03/17 18:35 Dose: 250 mg - Labs Labs: 05/03/17 17:06 05/03/17 07:53 PT 15.7 SECONDS (9.7-12.2) H 05/03/17 20:55 INR 1.4 05/03/17 20:55 APTT 31 SECONDS (21-34) 05/03/17 20:55 Assessment and Plan - Assessment and Plan (Free Text) Assessment: Acute Renal Failure * Nephro (Mugni) * LR @75 * avoid nephrotoxic agents * F/U renal US s/p Suprapubic Prostatectomy 2/2 BPH * Urology (Shae Mcguire) * Cystoscopy revealed severely enlarged prostate with outflow obstruction * Rocephin 1Gm IVPB qD (start 05/03) * Morphine 4mg IVP Q4H PRN, pain moderate * Colace 100mg PO TID * continous bladder irrigation Hypertension * BP 137/70 * Amlodipine 10mg QD in am * Cardizem 180mg PO QD * Cardiology (Abed) * previosuly cleared patient for surgery Lower extremity swelling * LE doppler showed DVT of common fem on the L * Vascular surgery ([facility]) * Surgery in AM for IVC filter * ABG done and was negative for any signs of hypoxia Anemia * patients base line Hgb from prior [facility] visit is 8.9 * Ferrous Sulfate 325mg PO QD * Heme ([place]) * Recommend IVC filter Hx Diabetes Mellitus * A1c - 5.5 Hx Hyperlipidemia * hold crestor due to prior renal failure 2/2 BPH + urinary retention. * Lipid Panel PPX * C/I chemical anticoagulation 2/2 bleeding on CBI * IVC filter tomorrow * MVI (home med) * Florastor 250 PO BID * LR @75 <Yun Rosenbaum V - Last Filed: 05/04/17 09:26> Objective - Vital Signs/Intake and Output Vital Signs (last 24 hours): Temp Pulse Resp BP Pulse Ox 98.2 F 92 H 20 119/62 98 05/04/17 08:21 05/04/17 08:21 05/04/17 08:21 05/04/17 08:21 05/04/17 08:21 Intake and Output: 05/04/17 05/04/17 06:59 18:59 Intake Total 72754 Output Total 49165 Balance -2670 - Medications Medications: Current Medications Diltiazem HCl (Cardizem Cd) 180 mg PO DAILY [facility] Docusate Sodium (Colace) 100 mg PO TID [facility] Last Admin: 05/03/17 18:37 Dose: Not Given Ferrous Sulfate (Feosol) 325 mg PO DAILY [facility] Last Admin: 05/03/17 10:57 Dose: 325 mg Ceftriaxone Sodium (Rocephin Iv 1 Gm Duplex) 50 mls @ 100 mls/hr IVPB DAILY [facility] Last Admin: 05/03/17 10:58 Dose: 100 mls/hr Lactated Ringer's (Lactated Ringer's) 1,000 mls @ 75 mls/hr IV .[id number] [facility] Last Admin: 05/03/17 22:00 Dose: 75 mls/hr Morphine Sulfate (Morphine) 4 mg IVP Q4 PRN PRN Reason: Pain, moderate (4-7) Last Admin: 05/03/17 04:39 Dose: 4 mg Multivitamins/Minerals (Therapeutic-M Tab) 1 tab PO 0800 [facility] Last Admin: 05/03/17 08:56 Dose: 1 tab Saccharomyces Boulardii (Florastor) 250 mg PO BID [facility] Last Admin: 05/03/17 18:35 Dose: 250 mg - Labs Labs: 05/04/17 07:52 05/04/17 07:52 PT 15.1 SECONDS (9.7-12.2) H 05/04/17 07:52 INR 1.3 05/04/17 07:52 APTT 31 SECONDS (21-34) 05/03/17 20:55 Attending/Attestation - Attestation Notes (Text): Please disregard this note. It is incomplete and we have not formally rounded on this patient nor discussed the patient. Will ask resident to rewrite the note with updated information regarding plan for 05/04/17
[2017-05-04 08:13] LABS: INR 1.3
[2017-05-04 08:15] LABS: BASO % 0.4 % (0.0-2.0); EOS # 0.2 K/uL (0.0-0.7); EOS % 1.7 % (0.0-4.0); HEMATOCRIT 24.5 % (35.0-51.0); LYMPH # 1.4 K/uL (1.0-4.3); LYMPH % 13.2 % (20.0-40.0); MEAN CELL VOLUME 88.3 fL (80.0-94.0); MEAN CORPUSCULAR HEMOGLOBIN 29.3 pg (27.0-31.0); MEAN CORPUSCULAR HGB CONC 33.2 g/dL (33.0-37.0); MEAN PLATELET VOLUME 9.2 fL (7.2-11.7); MONO # 0.9 K/uL (0.0-0.8); MONO % 8.3 % (0.0-10.0); RED CELL DISTRIBUTION WIDTH 15.3 % (11.5-14.5); WHITE BLOOD COUNT 10.4 K/uL (4.8-10.8)
[2017-05-04 08:33] LABS: POTASSIUM 4.2 mmol/L (3.6-5.2)
[2017-05-04 08:35] LABS: ALB/GLOB RATIO 0.8 (1.0-2.1); BILIRUBIN,TOTAL 1.2 mg/dL (0.2-1.3); TOTAL PROTEIN 6.2 g/dL (6.3-8.3)
[2017-05-04 08:36] LABS: CALCIUM 8.7 mg/dl (8.6-10.4); MAGNESIUM 1.6 mg/dL (1.6-2.3); PHOSPHOROUS 4.3 mg/dL (2.5-4.5)
[2017-05-04] MEDS: Multivitamin With Minerals Tab PO SCH (10:00)
[2017-05-04] MEDS ORDERED: diltiaZEM 180 mg/24 Hours CD Cap PO SCH (10:00)
[2017-05-04] MEDS: Saccharomyces Boulardi 250 mg Cap PO SCH ×2 (10:00→18:20)
--- NOTE | 2017-05-04 10:04 | VASCLAB ---
PROCEDURE: Lower Extremity Venous Duplex Exam. HISTORY: b/l LE swelling. PRIORS: None. TECHNIQUE: Bilateral common femoral, femoral, popliteal and posterior tibial, peroneal and great saphenous veins were evaluated. Flow was assessed with color Doppler, compressibility, assessment of phasic flow and augmentation response. Report prepared by lead neurodiagnostic technologist. FINDINGS: RIGHT: 1. Common Femoral Vein: 1.1. Compressibility - Fully compressible: Thrombus - None : Flow - Phasic: Augmentation -Normal: Reflux - None. 2. Femoral Vein: 2.1. Compressibility - Fully compressible: Thrombus - None : Flow - Phasic: Augmentation -Normal: Reflux - None. 3. Popliteal Vein: 3.1. Compressibility - Fully compressible: Thrombus - None : Flow - Phasic: Augmentation -Normal: Reflux - None. 4. Posterior Tibial Vein: 4.1. Compressibility - Fully compressible: Thrombus - None: Flow - Phasic: Augmentation -Normal: Reflux - None. 5. Peroneal Vein: 5.1. Compressibility - Fully compressible: Thrombus - None: Flow - Phasic: Augmentation -Normal: Reflux - None. 6. Great Saphenous Vein: 6.1. Compressibility - Fully compressible: Thrombus - None: Flow - Phasic: Augmentation - Normal: Reflux - None. LEFT: 1. Common Femoral Vein: 1.1. Compressibility - Partial: Thrombus - Acute: Flow - Phasic : Augmentation -Normal: Reflux - None. 2. Femoral Vein: (proximal) 2.1. Compressibility - Partial: Thrombus - Acute: Flow - Phasic: Augmentation -Normal: Reflux - None. 3. Popliteal Vein: 3.1. Compressibility - Fully compressible: Thrombus - None : Flow - Phasic: Augmentation -Normal: Reflux - None. 4. Posterior Tibial Vein: 4.1. Compressibility - Fully compressible: Thrombus - None: Flow - Phasic: Augmentation -Normal: Reflux - None. 5. Peroneal Vein: 5.1. Compressibility - Fully compressible: Thrombus - None: Flow - Phasic: Augmentation -Normal: Reflux - None. 6. Great Saphenous Vein: 6.1. Compressibility - Fully compressible: Thrombus - None: Flow - Phasic: Augmentation - Normal: Reflux - None. OTHER FINDINGS: Findings were reported to [place] Michel, at 10:22 a.m. IMPRESSION: Right: No evidence of deep or superficial vein thrombosis of the right lower extremity. Normal valve function noted of the right side. Left: Partial acute deep vein thrombosis, of the left common femoral and proximal femoral veins.
--- NOTE | 2017-05-04 11:05 | PCM.URO ---
Urology Progress Note - General General: No Complaints, Tolerating Diet - Subjective Abdominal Pain: No Flank Pain: No Nausea: No Vomiting: No Hematuria: Yes (SLIGHT, PINK) Dsypnea: No Chest Pain: No Fever & Chills: No - Objective Lab Studies: Reviewed Lab Results Last 24 Hours: Laboratory Results - last 24 hr 05/02/17 05/03/17 05/03/17 07:26 07:53 17:06 WBC 11.9 H RBC 2.53 L Hgb 7.2 L Hct 22.7 L MCV 89.7 MCH 28.4 MCHC 31.7 L RDW 15.8 H Plt Count 154 MPV 9.6 Neut % (Auto) 76.9 H Lymph % (Auto) 12.7 L [place] % (Auto) 9.0 Eos % (Auto) 1.2 Baso % (Auto) 0.2 Neut # 9.2 H Lymph # 1.5 Daggett # 1.1 H Eos # 0.1 Baso # 0.0 Haptoglobin 150 PT INR APTT Puncture Site pCO2 pO2 HCO3 ABG pH ABG Total CO2 ABG O2 Saturation ABG Base Excess ABG Hemoglobin ABG Carboxyhemoglobin POC ABG HHb (Measured) ABG Methemoglobin Bulmaro Test A-a O2 Difference Respiratory Index Hgb O2 Saturation FiO2 Sodium Potassium Chloride Carbon Dioxide Anion Gap BUN Creatinine Est GFR ( Amer) Est GFR (Non-Af Amer) POC Glucose (mg/dL) Random Glucose Calcium Phosphorus Magnesium Total Bilirubin AST ALT Alkaline Phosphatase Total Protein Albumin Globulin Albumin/Globulin Ratio Triglycerides Cholesterol LDL Cholesterol Direct HDL Cholesterol Blood Type A POSITIVE Blood Type Confirm A POSITIVE Antibody Screen Negative 05/03/17 05/03/17 05/04/17 18:30 20:55 06:33 WBC RBC Hgb Hct MCV MCH MCHC RDW Plt Count MPV Neut % (Auto) Lymph % (Auto) Daggett % (Auto) Eos % (Auto) Baso % (Auto) Neut # Lymph # Daggett # Eos # Baso # Haptoglobin PT 15.7 H INR 1.4 APTT 31 Puncture Site Lra pCO2 38 pO2 77 L HCO3 27.2 ABG pH 7.46 H ABG Total CO2 28.2 H ABG O2 Saturation 99.4 H ABG Base Excess 2.9 ABG Hemoglobin 6.9 L ABG Carboxyhemoglobin 2.7 H POC ABG HHb (Measured) 0.6 ABG Methemoglobin 0.9 Bulmaro Test Pos A-a O2 Difference 25.0 Respiratory Index 0.3 Hgb O2 Saturation 95.8 FiO2 21.0 Sodium Potassium Chloride Carbon Dioxide Anion Gap BUN Creatinine Est GFR ( Amer) Est GFR (Non-Af Amer) POC Glucose (mg/dL) 109 Random Glucose Calcium Phosphorus Magnesium Total Bilirubin AST ALT Alkaline Phosphatase Total Protein Albumin Globulin Albumin/Globulin Ratio Triglycerides Cholesterol LDL Cholesterol Direct HDL Cholesterol Blood Type Blood Type Confirm Antibody Screen 05/04/17 05/04/17 05/04/17 07:52 07:52 07:52 WBC 10.4 RBC 2.78 L Hgb 8.2 L Hct 24.5 L MCV 88.3 MCH 29.3 MCHC 33.2 RDW 15.3 H Plt Count 150 MPV 9.2 Neut % (Auto) 76.4 H Lymph % (Auto) 13.2 L [place] % (Auto) 8.3 Eos % (Auto) 1.7 Baso % (Auto) 0.4 Neut # 8.0 H Lymph # 1.4 Daggett # 0.9 H Eos # 0.2 Baso # 0.0 Haptoglobin PT 15.1 H INR 1.3 APTT Puncture Site pCO2 pO2 HCO3 ABG pH ABG Total CO2 ABG O2 Saturation ABG Base Excess ABG Hemoglobin ABG Carboxyhemoglobin POC ABG HHb (Measured) ABG Methemoglobin Bulmaro Test A-a O2 Difference Respiratory Index Hgb O2 Saturation FiO2 Sodium 138 Potassium 4.2 Chloride 101 Carbon Dioxide 27 Anion Gap 15 BUN 16 Creatinine 1.4 Est GFR ( Amer) 59 Est GFR (Non-Af Amer) 49 POC Glucose (mg/dL) Random Glucose 108 Calcium 8.7 Phosphorus 4.3 Magnesium 1.6 Total Bilirubin 1.2 AST 15 L ALT 27 Alkaline Phosphatase 60 Total Protein 6.2 L Albumin 2.7 L Globulin 3.5 Albumin/Globulin Ratio 0.8 L Triglycerides 82 Cholesterol 122 LDL Cholesterol Direct 74 HDL Cholesterol 27 L Blood Type Blood Type Confirm Antibody Screen Intake & Output: Intake & Output 05/03/17 05/04/17 05/04/17 18:59 06:59 18:59 Intake Total 2200 99979 Output Total 9400 14171 Balance -3512 -3242 Intake: Intake, IV Amount 1200 900 Right Forearm 1200 900 Oral 400 480 Blood Product 650 Red Blood Cells Cpd As1 325 Lr Unit [id number] Other 600 52553 Red Blood Cells Cpd As1 100 Lr Unit [id number] Output: Drainage 0 Abdomen 0 Urine 9400 95369 3-way Urethral 1700 2450 Other: # Bowel Movements 0 0 Vital Signs: Vital Signs - 24 hr 05/03/17 05/03/17 05/03/17 15:54 22:42 23:00 Temperature 98.9 F 101.1 F H Pulse Rate 93 H 97 H Respiratory 18 20 Rate Blood Pressure 124/64 125/65 123/65 O2 Sat by Pulse 99 98 Oximetry 05/03/17 05/03/17 05/04/17 23:13 23:46 01:53 Temperature 99.8 F H 101.1 F H 99.2 F Pulse Rate 94 H 90 Respiratory 20 18 Rate Blood Pressure 138/70 111/64 O2 Sat by Pulse 98 Oximetry 05/04/17 05/04/17 05/04/17 02:08 02:23 02:53 Temperature 98.9 F 98.8 F 99 F Pulse Rate 88 89 93 H Respiratory 19 18 20 Rate Blood Pressure 101/59 L 105/60 127/76 O2 Sat by Pulse Oximetry 05/04/17 05/04/17 05/04/17 03:30 04:00 04:36 Temperature 98.9 F 98.8 F 98.7 F Pulse Rate 82 86 86 Respiratory 18 20 20 Rate Blood Pressure 126/66 122/65 122/71 O2 Sat by Pulse Oximetry 05/04/17 05/04/17 04:44 08:21 Temperature 98.7 F 98.2 F Pulse Rate 86 92 H Respiratory 20 20 Rate Blood Pressure 122/71 119/62 O2 Sat by Pulse 98 Oximetry - Physical Exam Abdominal Exam: Soft, Non-Tender, Non-Distended Bowel Sounds: Normal Wound: Clean, Healing Well Back: No CVA Tenderness Genitalia: Without Inflammation Urinary Catheter Draining Well: Yes Urine Color: [place] Extremities: Normal: Bilateral (No calf or thigh tenderness, no edema, despite doppler/us findings) - Male Phallus: Normal, Uncircumcised Scrotum: Normal Testes: Normal: Bilateral - Plan See Orders: Yes Additional Information: Imp: urologically stable, post SPP. DVT left, involving femoral vein. Case discussed extensively with medical staff and vascular surgeon. for IVC filter insertion. Ampicillin for UTI, enterococcus. Drain removed. Wound care. Catheter care - Date & Time of Note Date: 05/04/17 Time: 11:05
[2017-05-04] MEDS ORDERED: Propofol 10 mg/ml Inj (20 ML) ONE ×2 (12:35)
[2017-05-04] MEDS ORDERED: Lidocaine 2% Inj (20ml) ONE (12:41)
--- NOTE | 2017-05-04 13:01 | CP.PCM.PN ---
<Kayden Camacho - Last Filed: 05/04/17 20:13> Subjective - Date & Time of Evaluation Date of Evaluation: 05/04/17 Time of Evaluation: 12:57 - Subjective Subjective: PGY1 Note for Dr. Rosenbaum HPI: Patient seen and examined at bedside. Doing well with no complaints at this time/. I told him he had a clot found in his leg and because he just had surgery and was anemic was not a candidate for anticoagulation therapy. He has been scheduled for and IVC filter placed. We talked about the risks and benefits of the surgery. Patient agreed with the plan. Objective - Vital Signs/Intake and Output Vital Signs (last 24 hours): Temp Pulse Resp BP Pulse Ox 98.2 F 92 H 20 119/62 98 05/04/17 08:21 05/04/17 08:21 05/04/17 08:21 05/04/17 08:21 05/04/17 08:21 Intake and Output: 05/04/17 05/04/17 06:59 18:59 Intake Total 54418 7000 Output Total 98418 4000 Balance -2670 3000 - Medications Medications: Current Medications Diltiazem HCl (Cardizem Cd) 180 mg PO DAILY [facility] Docusate Sodium (Colace) 100 mg PO TID [facility] Last Admin: 05/03/17 18:37 Dose: Not Given Ferrous Sulfate (Feosol) 325 mg PO DAILY [facility] Last Admin: 05/03/17 10:57 Dose: 325 mg Ceftriaxone Sodium (Rocephin Iv 1 Gm Duplex) 50 mls @ 100 mls/hr IVPB DAILY [facility] Last Admin: 05/03/17 10:58 Dose: 100 mls/hr Lactated Ringer's (Lactated Ringer's) 1,000 mls @ 75 mls/hr IV .[id number] [facility] Last Admin: 05/03/17 22:00 Dose: 75 mls/hr Morphine Sulfate (Morphine) 4 mg IVP Q4 PRN PRN Reason: Pain, moderate (4-7) Last Admin: 05/03/17 04:39 Dose: 4 mg Multivitamins/Minerals (Therapeutic-M Tab) 1 tab PO 0800 [facility] Last Admin: 05/03/17 08:56 Dose: 1 tab Saccharomyces Boulardii (Florastor) 250 mg PO BID [facility] Last Admin: 05/03/17 18:35 Dose: 250 mg - Labs Labs: 05/04/17 07:52 05/04/17 07:52 PT 15.1 SECONDS (9.7-12.2) H 05/04/17 07:52 INR 1.3 05/04/17 07:52 APTT 31 SECONDS (21-34) 05/03/17 20:55 - Constitutional Appears: Well, Non-toxic, No Acute Distress - Head Exam Head Exam: ATRAUMATIC, NORMAL INSPECTION, NORMOCEPHALIC - Eye Exam Eye Exam: EOMI - ENT Exam ENT Exam: Mucous Membranes Moist - Respiratory Exam Respiratory Exam: Clear to Ausculation Bilateral, NORMAL BREATHING PATTERN - Cardiovascular Exam Cardiovascular Exam: REGULAR RHYTHM, RRR, Murmur (best heard of aortic area). absent: Bradycardia, Tachycardia - GI/Abdominal Exam GI & Abdominal Exam: Soft, Tenderness (soreness over incision site), Mass, Normal Bowel Sounds - Neurological Exam Neurological Exam: Alert, Awake, Oriented x3 - Psychiatric Exam Psychiatric exam: Normal Affect, Normal Mood - Skin Skin Exam: Dry, Intact, Normal Color, Warm Assessment and Plan - Assessment and Plan (Free Text) Assessment: UTI (VRE) * ID (Mangia) * Ampicillin 2g IV Q6 (started on 05/04) * Cont for 14d Acute Renal Failure * Nephro (Mugni) * LR @75 * avoid nephrotoxic agents * F/U renal US s/p Suprapubic Prostatectomy 2/2 BPH * Urology (Shae Mcguire) * Cystoscopy revealed severely enlarged prostate with outflow obstruction * Rocephin 1Gm IVPB qD (start 05/03) * Morphine 4mg IVP Q4H PRN, pain moderate * Colace 100mg PO TID * continous bladder irrigation Hypertension * BP 137/70 * Amlodipine 10mg QD in am * Cardizem 180mg PO QD * Cardiology (Abed) * previosuly cleared patient for surgery Lower extremity swelling * LE doppler showed DVT of common fem on the L * Vascular surgery ([place]) * Surgery in AM for IVC filter * ABG done and was negative for any signs of hypoxia Anemia * patients base line Hgb from prior [facility] [place] is 8.9 * Ferrous Sulfate 325mg PO QD * Heme ([place]) * Recommend IVC filter Hx Diabetes Mellitus * A1c - 5.5 Hx Hyperlipidemia * hold crestor due to prior renal failure 2/2 BPH + urinary retention. * Lipid Panel * TG - 82 * Cholesterol - 122 * LDL - 74 * HDL - 27 * Outpatient Fish Oil PPX * C/I chemical anticoagulation 2/2 bleeding on CBI * IVC filter tomorrow * MVI (home med) * Florastor 250 PO BID * LR @75 <Yun Rosenbaum V - Last Filed: 05/05/17 05:16> Objective - Vital Signs/Intake and Output Vital Signs (last 24 hours): Temp Pulse Resp BP Pulse Ox 98.9 F 82 20 109/59 L 98 05/04/17 23:40 05/04/17 23:40 05/04/17 23:40 05/04/17 23:40 05/04/17 23:40 Intake and Output: 05/04/17 05/05/17 18:59 06:59 Intake Total 7300 1500 Output Total 5500 850 Balance 1800 650 - Medications Medications: Current Medications Diltiazem HCl (Cardizem Cd) 180 mg PO DAILY [facility] Last Admin: 05/04/17 10:00 Dose: Not Given Docusate Sodium (Colace) 100 mg PO TID [facility] Last Admin: 05/04/17 18:20 Dose: 100 mg Ferrous Sulfate (Feosol) 325 mg PO DAILY [facility] Last Admin: 05/04/17 10:00 Dose: Not Given Ampicillin 2 gm/ Sodium (Chloride) 100 mls @ 100 mls/hr IVPB Q6H [facility] Last Admin: 05/05/17 00:55 Dose: 100 mls/hr Sodium Chloride (Sodium Chloride 0.45%) 1,000 mls @ 75 mls/hr IV .[id number] [facility] Last Admin: 05/04/17 19:51 Dose: 75 mls/hr Morphine Sulfate (Morphine) 4 mg IVP Q4 PRN PRN Reason: Pain, moderate (4-7) Last Admin: 05/04/17 18:24 Dose: 4 mg Multivitamins/Minerals (Therapeutic-M Tab) 1 tab PO 0800 [facility] Last Admin: 05/04/17 10:00 Dose: Not Given Saccharomyces Boulardii (Florastor) 250 mg PO BID [facility] Last Admin: 05/04/17 18:20 Dose: 250 mg - Labs Labs: 05/04/17 07:52 05/04/17 07:52 PT 15.1 SECONDS (9.7-12.2) H 05/04/17 07:52 INR 1.3 05/04/17 07:52 APTT 31 SECONDS (21-34) 05/03/17 20:55 Attending/Attestation - Attestation I have personally seen and examined this patient.: Yes I have fully participated in the care of the patient.: Yes I have reviewed all pertinent clinical information, including history, physical exam and plan: Yes Notes (Text): This is late computer entry for 05/04/17. Patient seen, examined, and case discussed with day time resident. Patient seen post-operative s/p placement of IVC filter. Discussed with vascular surgeon, no complications during procedure. Patient does not have acute complaints. Patient reports he is feeling good. He is receiving bedside irrigation of the aguillon by nurse; serosaguinious fluid. Patient was seen and evaluated by urology earlier today. Patient's urine culture: positive for VRE UTI. Infectious Disease consulted. Patient started on Ampicillin IV. Discussed with urology and infectious disease. Note: urine culture from prior old aguillon. This current aguillon is new. BUN/Cr improving since post suprapubic prostatetomy Assessment/Plan 1) Obstructive uropathy secondary to Enlarged Prostate s/p Suprapubic Prostatectomy POD 2 - Urology consult, Dr. Shae Mcguire; case discussed with urology - Nephrology consult, Dr. Abdalla-->help appreciated - Infectious disease, Dr. Portillo-->help appreciated - Patient has aguillon in placed and currently on CBI per urology. - Cystoscopy revealed severely enlarged prostate with outflow obstruction - Rocephin 1Gm IVPB qD (start 05/03/17) discontinued-->Start on Ampicillin IV - Morphine 4mg IVP Q4H PRN, pain moderate per urology - Colace 100mg PO TID - LR 150cc/hr -Surgery management regarding prostatectomy per urology (prepost/intraoperative/ postoperative)-->per urology, cannot be on therapeutic anticoagulation-->will need to follow-up with heme-onc and vascular surgery regarding if appropriate for IVC filter and if DVT ppx dosing is beneficial for the patient. 2) Deep vein thrombosis s/p IVC filter POD 0 - Left venous doppler: common femoral +DVT - Heme-onc consult: Dr. Angelic Geiger help appreciated--> patient is high risk for bleeding given recent GI bleed and recent urologic; recommend IVC filter - Vascular surgery: Dr. Gama help appreciated - Patient went to OR this morning for IVC filter with vascular surgery 3) Hypertension - Monitor vital signs - Cardiology Consult, Dr. Higgins, f/u recs - previously saw pt. and cleared for urologic surgery prior to admission. Stress test included in the chart (preop paperwork in chart) -Cardizem 180 mg CD once a day 4) Lower extremity swelling - Confirmed DVT+ per venous doppler; improving - s/p IVC filter POD 0 5) Anemia, hx of Anemia - patients base line Hgb from prior [facility] [place] is 8.9-->7.3-->7.2-->8.2 - s/p 1 unit of PRBC transfusion - question as to recent GI bleed-->will need to get paperwork from [facility] to review prior hospitalization - Continue Ferrous Sulfate 325mg PO qD - No blood transfusion given during urologic procedure - iron studies are low for the patient-->discussed with heme-onc-->likely chronic not acute 5) Hx Diabetes Mellitus - A1c: 5.5 - Accuchecks QAC and HS - Controlled 6) Hx Hyperlipidemia - hold crestor due to prior renal failure 2/2 BPH + urinary retention. 7) Prophylaxis + DVT--> Patient is s/p IVC filter POD 0 insertion; will f/u with heme-onc/ urology/vascular surgery in terms of when patient appropriate for anticoagulation -C/I chemical anticoagulation 2/2 hx of GI bleed per review of record; and urologic procedure POD 2-->No SCDS secondary to current DVT -MVI (home med)
--- NOTE | 2017-05-04 13:37 | PCM.SURG1 ---
Surgeon's Initial Post Op Note - Surgeon's Notes Surgeon: mitra Tin Recovery Worker: 0 Type of Anesthesia: IV Sedation Anesthesia Administered By: nadia Pre-Operative Diagnosis: dvt left leg/ prostate surgery Operative Findings: filter to juxtareanl position Post-Operative Diagnosis: same Operation Performed: bard arlyn removable filter Specimen/Specimens Removed: 0 Estimated Blood Loss: EBL {In ML}: 5 Blood Products Given: N/A Drains Used: No Drains Post-Op Condition: Good Date of Surgery/Procedure: 05/04/17 Time of Surgery/Procedure: 13:37
--- NOTE | 2017-05-04 14:55 | RAD ---
PROCEDURE: Intraoperative fluoroscopy HISTORY: DVT COMPARISON: Not available TECHNIQUE: Intraoperative fluoroscopy was provided for IVC filter placement. Total time of fluoroscopy was 84.4 seconds. FINDINGS: Multiple fluoroscopic spot films are submitted. Films are on file for review. IMPRESSION: Fluoroscopy provided.
[2017-05-04] MEDS ORDERED: AMPicillin 1 GM in Sodium Chloride 0.9% 100 ML IV SCH (15:30)
[2017-05-04] MEDS: Lactated Ringer's 1,000 ML IV SCH (15:59)
[2017-05-04] MEDS ORDERED: Magnesium Hydroxide Susp 30 ml UD PO ONE (16:00)
--- NOTE | 2017-05-04 19:08 | CP.PCM.PN ---
Subjective - Date & Time of Evaluation Date of Evaluation: 05/04/17 Time of Evaluation: 19:00 - Subjective Subjective: Patient denies any shortness of breath; still with lower abd/pelvic "soreness"; tolerating diet well; Objective - Vital Signs/Intake and Output Vital Signs (last 24 hours): Temp Pulse Resp BP Pulse Ox 98.3 F 88 18 140/66 99 05/04/17 15:37 05/04/17 15:37 05/04/17 15:37 05/04/17 15:37 05/04/17 15:37 Intake and Output: 05/04/17 05/05/17 18:59 06:59 Intake Total 7300 Output Total 5500 Balance 1800 - Medications Medications: Current Medications Diltiazem HCl (Cardizem Cd) 180 mg PO DAILY [facility] Last Admin: 05/04/17 10:00 Dose: Not Given Docusate Sodium (Colace) 100 mg PO TID [facility] Last Admin: 05/04/17 18:20 Dose: 100 mg Ferrous Sulfate (Feosol) 325 mg PO DAILY [facility] Last Admin: 05/04/17 10:00 Dose: Not Given Lactated Ringer's (Lactated Ringer's) 1,000 mls @ 75 mls/hr IV .[id number] [facility] Last Admin: 05/04/17 15:59 Dose: 75 mls/hr Ampicillin 2 gm/ Sodium (Chloride) 100 mls @ 100 mls/hr IVPB Q6H [facility] Morphine Sulfate (Morphine) 4 mg IVP Q4 PRN PRN Reason: Pain, moderate (4-7) Last Admin: 05/04/17 18:24 Dose: 4 mg Multivitamins/Minerals (Therapeutic-M Tab) 1 tab PO 0800 [facility] Last Admin: 05/04/17 10:00 Dose: Not Given Saccharomyces Boulardii (Florastor) 250 mg PO BID [facility] Last Admin: 05/04/17 18:20 Dose: 250 mg - Labs Labs: 05/04/17 07:52 05/04/17 07:52 PT 15.1 SECONDS (9.7-12.2) H 05/04/17 07:52 INR 1.3 05/04/17 07:52 APTT 31 SECONDS (21-34) 05/03/17 20:55 - Constitutional Appears: Well, No Acute Distress - Head Exam Head Exam: NORMAL INSPECTION - Eye Exam Eye Exam: Normal appearance - ENT Exam ENT Exam: Mucous Membranes Moist - Respiratory Exam Respiratory Exam: Clear to Ausculation Bilateral, NORMAL BREATHING PATTERN - Cardiovascular Exam Cardiovascular Exam: RRR Additional comments: systolic murmur present; - GI/Abdominal Exam GI & Abdominal Exam: Soft. absent: Distended Additional comments: lower abd/pelvic tenderness; - Extremities Exam Additional comments: Mild lower leg edema; - Neurological Exam Neurological Exam: Alert, Awake - Psychiatric Exam Psychiatric exam: Normal Affect, Normal Mood - Skin Skin Exam: Normal Color, Warm. absent: Cyanosis Assessment and Plan (1) Acute renal failure Assessment & Plan: Resolving; changing IVF to 1/2NS at 75 cc/hr due to elevated BP; will check renal US to assess for signs of CKD; Status: Acute (2) Urinary retention Assessment & Plan: Resolved s/p prostectomy; continue bladder irrigation until hematuria resolves; Status: Acute (3) Anemia Assessment & Plan: s/p 1 u prbc with appropriate increase in hgb; consider IV iron; Status: Acute (4) HTN (hypertension) Assessment & Plan: On cardizem CD 180 mg daily; continue same; Status: Acute - Assessment and Plan (Free Text) Assessment: Acute DVT - Now s/p IVC filter; f/u with urology for optimal timing of starting anticoagulation s/p prostatectomy;
[2017-05-04] MEDS: AMPicillin 2 GM in Sodium Chloride 0.9% 100 ML IVPB SCH (19:49)
[2017-05-04] MEDS: Sodium Chloride 0.45% 1,000 ML IV SCH (19:51)
[2017-05-05] MEDS: AMPicillin 2 GM in Sodium Chloride 0.9% 100 ML IVPB SCH ×4 (00:55→19:04)
--- NOTE | 2017-05-05 06:20 | CP.PCM.PN ---
<Kayden Camacho - Last Filed: 05/05/17 06:12> Subjective - Date & Time of Evaluation Date of Evaluation: 05/05/17 Time of Evaluation: 06:12 - Subjective Subjective: PGY1 Note for Dr. Rosenbaum HPI: Objective - Vital Signs/Intake and Output Vital Signs (last 24 hours): Temp Pulse Resp BP Pulse Ox 98.9 F 82 20 109/59 L 98 05/04/17 23:40 05/04/17 23:40 05/04/17 23:40 05/04/17 23:40 05/04/17 23:40 Intake and Output: 05/04/17 05/05/17 18:59 06:59 Intake Total 7300 1500 Output Total 5500 850 Balance 1800 650 - Medications Medications: Current Medications Diltiazem HCl (Cardizem Cd) 180 mg PO DAILY [facility] Last Admin: 05/04/17 10:00 Dose: Not Given Docusate Sodium (Colace) 100 mg PO TID [facility] Last Admin: 05/04/17 18:20 Dose: 100 mg Ferrous Sulfate (Feosol) 325 mg PO DAILY [facility] Last Admin: 05/04/17 10:00 Dose: Not Given Ampicillin 2 gm/ Sodium (Chloride) 100 mls @ 100 mls/hr IVPB Q6H [facility] Last Admin: 05/05/17 00:55 Dose: 100 mls/hr Sodium Chloride (Sodium Chloride 0.45%) 1,000 mls @ 75 mls/hr IV .[id number] [facility] Last Admin: 05/04/17 19:51 Dose: 75 mls/hr Morphine Sulfate (Morphine) 4 mg IVP Q4 PRN PRN Reason: Pain, moderate (4-7) Last Admin: 05/04/17 18:24 Dose: 4 mg Multivitamins/Minerals (Therapeutic-M Tab) 1 tab PO 0800 [facility] Last Admin: 05/04/17 10:00 Dose: Not Given Saccharomyces Boulardii (Florastor) 250 mg PO BID [facility] Last Admin: 05/04/17 18:20 Dose: 250 mg - Labs Labs: 05/04/17 07:52 05/04/17 07:52 PT 15.1 SECONDS (9.7-12.2) H 05/04/17 07:52 INR 1.3 05/04/17 07:52 APTT 31 SECONDS (21-34) 05/03/17 20:55 Assessment and Plan - Assessment and Plan (Free Text) Assessment: UTI (VRE) * ID (Mangia) * Ampicillin 2g IV Q6 (started on 05/04) * Cont for 14d Acute Renal Failure * Nephro (Mugni) * 1/2 NS @ 75 * avoid nephrotoxic agents * F/U renal US s/p Suprapubic Prostatectomy 2/2 BPH * Urology (Shae Mcguire) * Cystoscopy revealed severely enlarged prostate with outflow obstruction * Morphine 4mg IVP Q4H PRN, pain moderate * Colace 100mg PO TID * continous bladder irrigation Hypertension * Amlodipine 10mg QD in am * Cardizem 180mg PO QD * Cardiology (Abed) * previously cleared patient for surgery Lower extremity swelling * LE doppler showed DVT of common fem on the L * Vascular surgery ([place]) * IVC filter place on 05/05 Anemia * patients base line Hgb from prior [facility] visit is 8.9 * Ferrous Sulfate 325mg PO QD * Heme ([place]) * Recommend IVC filter Hx Diabetes Mellitus * A1c - 5.5 Hx Hyperlipidemia * hold crestor due to prior renal failure 2/2 BPH + urinary retention. * Lipid Panel * TG - 82 * Cholesterol - 122 * LDL - 74 * HDL - 27 * Outpatient Fish Oil PPX * IVC Filter, C/I chemical anticoagulation 2/2 bleeding on CBI * MVI (home med) * Florastor 250 PO BID <Yun Rosenbaum V - Last Filed: 05/05/17 07:26> Objective - Vital Signs/Intake and Output Vital Signs (last 24 hours): Temp Pulse Resp BP Pulse Ox 98.9 F 82 20 109/59 L 98 05/04/17 23:40 05/04/17 23:40 05/04/17 23:40 05/04/17 23:40 05/04/17 23:40 Intake and Output: 05/05/17 05/05/17 06:59 18:59 Intake Total 2700 Output Total 1850 Balance 850 - Medications Medications: Current Medications Diltiazem HCl (Cardizem Cd) 180 mg PO DAILY [facility] Last Admin: 05/04/17 10:00 Dose: Not Given Docusate Sodium (Colace) 100 mg PO TID [facility] Last Admin: 05/04/17 18:20 Dose: 100 mg Ferrous Sulfate (Feosol) 325 mg PO DAILY [facility] Last Admin: 05/04/17 10:00 Dose: Not Given Ampicillin 2 gm/ Sodium (Chloride) 100 mls @ 100 mls/hr IVPB Q6H [facility] Last Admin: 05/05/17 06:14 Dose: 100 mls/hr Sodium Chloride (Sodium Chloride 0.45%) 1,000 mls @ 75 mls/hr IV .[id number] [facility] Last Admin: 05/04/17 19:51 Dose: 75 mls/hr Morphine Sulfate (Morphine) 4 mg IVP Q4 PRN PRN Reason: Pain, moderate (4-7) Last Admin: 05/04/17 18:24 Dose: 4 mg Multivitamins/Minerals (Therapeutic-M Tab) 1 tab PO 0800 [facility] Last Admin: 05/04/17 10:00 Dose: Not Given Saccharomyces Boulardii (Florastor) 250 mg PO BID [facility] Last Admin: 05/04/17 18:20 Dose: 250 mg - Labs Labs: 05/04/17 07:52 05/04/17 07:52 PT 15.1 SECONDS (9.7-12.2) H 05/04/17 07:52 INR 1.3 05/04/17 07:52 APTT 31 SECONDS (21-34) 05/03/17 20:55 Attending/Attestation - Attestation Notes (Text): Please disregard resident's note. He is advised to write a new note. Note is incomplete. Rounds have not begun nor has patient case discussed. please see follow-up note for same day. Thank you.
[2017-05-05 07:54] LABS: BASO % 0.4 % (0.0-2.0); EOS # 0.3 K/uL (0.0-0.7); EOS % 3.2 % (0.0-4.0); HEMATOCRIT 22.4 % (35.0-51.0); LYMPH # 1.1 K/uL (1.0-4.3); LYMPH % 12.9 % (20.0-40.0); MEAN CELL VOLUME 88.9 fL (80.0-94.0); MEAN CORPUSCULAR HEMOGLOBIN 29.5 pg (27.0-31.0); MEAN CORPUSCULAR HGB CONC 33.2 g/dL (33.0-37.0); MEAN PLATELET VOLUME 9.2 fL (7.2-11.7); MONO # 0.6 K/uL (0.0-0.8); MONO % 6.5 % (0.0-10.0); RED CELL DISTRIBUTION WIDTH 15.5 % (11.5-14.5); WHITE BLOOD COUNT 8.7 K/uL (4.8-10.8)
[2017-05-05 08:05] LABS: CHLORIDE 100 mmol/L (98-107); POTASSIUM 3.8 mmol/L (3.6-5.2); SODIUM 136 mmol/L (132-148)
[2017-05-05 08:07] LABS: ALB/GLOB RATIO 0.8 (1.0-2.1); ALKALINE PHOSPHATASE 61 U/L (38-126); AST/SGOT 14 U/L (17-59); BILIRUBIN,TOTAL 0.7 mg/dL (0.2-1.3); CARBON DIOXIDE 25 mmol/L (22-30); GFR AFRICAN-AMERICAN > 60
[2017-05-05 08:08] LABS: ALT/SGPT 27 U/L (21-72); BLOOD UREA NITROGEN 14 mg/dL (9-20); CALCIUM 8.2 mg/dl (8.6-10.4); GLUCOSE,RANDOM 100 mg/dL (75-110); PHOSPHOROUS 3.8 mg/dL (2.5-4.5)
[2017-05-05 08:09] LABS: MAGNESIUM 1.6 mg/dL (1.6-2.3)
[2017-05-05] MEDS ORDERED: Magnesium Hydroxide Susp 30 ml UD PO ONE ×2 (08:18→11:16)
[2017-05-05] MEDS: Multivitamin With Minerals Tab PO SCH (08:20)
[2017-05-05] MEDS: diltiaZEM 180 mg/24 Hours CD Cap PO SCH (11:08)
[2017-05-05] MEDS: Saccharomyces Boulardi 250 mg Cap PO SCH ×2 (11:08→19:04)
--- NOTE | 2017-05-05 12:03 | US ---
PROCEDURE: Ultrasound of the Kidneys HISTORY: ARF COMPARISON: None available. TECHNIQUE: Sonogram of the kidneys. FINDINGS: RIGHT KIDNEY: Measures: 10.1 x 6.1 x 5.5 cm. Right kidney appears normal overall size however there is an increased in parenchymal echotexture suggesting intrinsic medical renal disease. No stone, solid mass lesion or hydronephrosis visualized. No perinephric fluid collection identified. LEFT KIDNEY: Measures: 10.1 x 4.7 x 5.8 cm. Left kidney appears normal in size with mild increased parenchymal echogenicity which may indicate delete intrinsic medical renal disease. No stone, solid mass lesion or hydronephrosis visualized. No perinephric fluid collection identified. OTHER FINDINGS: Incidental note is made of sludge within the gallbladder with likely calculi and in normal visualize common bile duct caliber. . IMPRESSION: Mildly echogenic renal parenchyma bilaterally may indicate an element of intrinsic medical renal disease. No obstructive uropathy bilaterally. Incidental sludge noted within a distended gallbladder with likely calculi in the lumen as well.
--- NOTE | 2017-05-05 12:59 | CP.PCM.PN ---
Subjective - Date & Time of Evaluation Date of Evaluation: 05/05/17 Time of Evaluation: 12:55 - Subjective Subjective: SURGERY NOTE FOR DR. STOKES 81M seen and examined at bedside. YVONNE. Denies pain at right femoral region Objective - Vital Signs/Intake and Output Vital Signs (last 24 hours): Temp Pulse Resp BP Pulse Ox 99.8 F H 79 20 113/57 L 98 05/05/17 08:28 05/05/17 08:28 05/05/17 08:28 05/05/17 08:28 05/05/17 08:28 Intake and Output: 05/05/17 05/05/17 06:59 18:59 Intake Total 2700 Output Total 1850 Balance 850 - Medications Medications: Current Medications Diltiazem HCl (Cardizem Cd) 180 mg PO DAILY [facility] Last Admin: 05/05/17 11:08 Dose: 180 mg Docusate Sodium (Colace) 100 mg PO TID [facility] Last Admin: 05/05/17 11:08 Dose: 100 mg Ferrous Sulfate (Feosol) 325 mg PO DAILY [facility] Last Admin: 05/05/17 11:00 Dose: 325 mg Ampicillin 2 gm/ Sodium (Chloride) 100 mls @ 100 mls/hr IVPB Q6H [facility] Last Admin: 05/05/17 06:14 Dose: 100 mls/hr Sodium Chloride (Sodium Chloride 0.45%) 1,000 mls @ 75 mls/hr IV .[id number] [facility] Last Admin: 05/04/17 19:51 Dose: 75 mls/hr Morphine Sulfate (Morphine) 4 mg IVP Q4 PRN PRN Reason: Pain, moderate (4-7) Last Admin: 05/04/17 18:24 Dose: 4 mg Multivitamins/Minerals (Therapeutic-M Tab) 1 tab PO 0800 [facility] Last Admin: 05/05/17 08:20 Dose: 1 tab Saccharomyces Boulardii (Florastor) 250 mg PO BID [facility] Last Admin: 05/05/17 11:08 Dose: 250 mg - Labs Labs: 05/05/17 07:36 05/05/17 07:36 PT 15.1 SECONDS (9.7-12.2) H 05/04/17 07:52 INR 1.3 05/04/17 07:52 APTT 31 SECONDS (21-34) 05/03/17 20:55 - Constitutional Appears: Non-toxic, No Acute Distress - Respiratory Exam Respiratory Exam: Clear to Ausculation Bilateral, NORMAL BREATHING PATTERN - Cardiovascular Exam Cardiovascular Exam: REGULAR RHYTHM, +S1, +S2 - GI/Abdominal Exam GI & Abdominal Exam: Soft. absent: Distended, Firm, Guarding, Rigid, Tenderness , Rebound Additional comments: suprapubic incision CDI right femoral region CDI - Neurological Exam Neurological Exam: Alert, Awake Assessment and Plan - Assessment and Plan (Free Text) Assessment: 81M s/p IVCF placement POD1 - groin site clean dry intact - no further surgical intervention at this time Further recs discuss with Dr. Natan Mcgee, PGY2
--- NOTE | 2017-05-05 13:30 | CP.PCM.PN ---
<Kayden Camacho - Last Filed: 05/05/17 13:32> Subjective - Date & Time of Evaluation Date of Evaluation: 05/05/17 Time of Evaluation: 13:26 - Subjective Subjective: PGY [address] Rosenbaum HPI: Patient seen and examined at bedside. Doing well with no complaints at this time. States his belly is still sore. No overt pain however. Says he is passing gas but has not had a BM. No pain over the IVC filter incision site. Has been breathing well. Gave him an ICS and showed him how to use it as he has not had one and is not really taking deep breaths. Denies F, CP, SOB, N/V/D, chills. Objective - Vital Signs/Intake and Output Vital Signs (last 24 hours): Temp Pulse Resp BP Pulse Ox 99.8 F H 79 20 113/57 L 98 05/05/17 08:28 05/05/17 08:28 05/05/17 08:28 05/05/17 08:28 05/05/17 08:28 Intake and Output: 05/05/17 05/05/17 06:59 18:59 Intake Total 2700 Output Total 1850 Balance 850 - Medications Medications: Current Medications Diltiazem HCl (Cardizem Cd) 180 mg PO DAILY [facility] Last Admin: 05/05/17 11:08 Dose: 180 mg Docusate Sodium (Colace) 100 mg PO TID [facility] Last Admin: 05/05/17 11:08 Dose: 100 mg Ferrous Sulfate (Feosol) 325 mg PO DAILY [facility] Last Admin: 05/05/17 11:00 Dose: 325 mg Ampicillin 2 gm/ Sodium (Chloride) 100 mls @ 100 mls/hr IVPB Q6H [facility] Last Admin: 05/05/17 06:14 Dose: 100 mls/hr Sodium Chloride (Sodium Chloride 0.45%) 1,000 mls @ 75 mls/hr IV .[id number] [facility] Last Admin: 05/04/17 19:51 Dose: 75 mls/hr Morphine Sulfate (Morphine) 4 mg IVP Q4 PRN PRN Reason: Pain, moderate (4-7) Last Admin: 05/04/17 18:24 Dose: 4 mg Multivitamins/Minerals (Therapeutic-M Tab) 1 tab PO 0800 [facility] Last Admin: 05/05/17 08:20 Dose: 1 tab Saccharomyces Marahdii (Florastor) 250 mg PO BID [facility] Last Admin: 05/05/17 11:08 Dose: 250 mg - Labs Labs: 05/05/17 07:36 05/05/17 07:36 PT 15.1 SECONDS (9.7-12.2) H 05/04/17 07:52 INR 1.3 05/04/17 07:52 APTT 31 SECONDS (21-34) 05/03/17 20:55 - Constitutional Appears: Well, Non-toxic, No Acute Distress - Head Exam Head Exam: ATRAUMATIC, NORMAL INSPECTION, NORMOCEPHALIC - Eye Exam Eye Exam: EOMI Pupil Exam: NORMAL ACCOMODATION - ENT Exam ENT Exam: Mucous Membranes Moist - Neck Exam Neck Exam: Normal Inspection - Respiratory Exam Respiratory Exam: Clear to Ausculation Bilateral. absent: Rales, Rhonchi, Wheezes - Cardiovascular Exam Cardiovascular Exam: REGULAR RHYTHM, Murmur (heard best over mitral area). absent: Gallop, Rubs - GI/Abdominal Exam GI & Abdominal Exam: Soft, Normal Bowel Sounds. absent: Distended, Tenderness Additional comments: dressing clean dry and intact - Extremities Exam Extremities Exam: Tenderness (mild tenderness over IVC insertion site. No evidence of a pseudoanyersm). absent: Joint Swelling - Neurological Exam Neurological Exam: Alert, Awake, Oriented x3 - Psychiatric Exam Psychiatric exam: Normal Affect, Normal Mood - Skin Skin Exam: Dry, Intact, Normal Color, Warm Assessment and Plan - Assessment and Plan (Free Text) Assessment: UTI (VRE) * ID (Mangia) * Ampicillin 2g IV Q6 (started on 05/04) * Cont for 14d Acute Renal Failure * Nephro (Mugni) * 1/2 NS @ 75 * avoid nephrotoxic agents * renal US - Echogenic renal parenchyma, consider intrinsic medical renal dz. No obstructive uropathy, Distended GB with sludge and stones s/p Suprapubic Prostatectomy 2/2 BPH * Urology (Shae Mcguire) * Cystoscopy revealed severely enlarged prostate with outflow obstruction * Morphine 4mg IVP Q4H PRN, pain moderate * Colace 100mg PO TID * continous bladder irrigation Hypertension * Amlodipine 10mg QD in am * Cardizem 180mg PO QD * Cardiology ([place]) * previously cleared patient for surgery Lower extremity swelling * LE doppler showed DVT of common fem on the L * Vascular surgery ([place]) * IVC filter place on 05/05 Anemia * Repeat H/H * Get [facility] [place] * patients base line Hgb from prior [facility] [place] is 8.9 * Ferrous Sulfate 325mg PO QD * Heme ([place]) * Recommend IVC filter Hx Diabetes Mellitus * A1c - 5.5 Hx Hyperlipidemia * hold crestor due to prior renal failure 2/2 BPH + urinary retention. * Lipid Panel * TG - 82 * Cholesterol - 122 * LDL - 74 * HDL - 27 * Outpatient Fish Oil PPX * IVC Filter, C/I chemical anticoagulation 2/2 bleeding on CBI * MVI (home med) * ICS 10x/hr * Florastor 250 PO BID <Yun Rosenbaum V - Last Filed: 05/07/17 10:03> Objective - Vital Signs/Intake and Output Vital Signs (last 24 hours): Temp Pulse Resp BP Pulse Ox 97.4 F L 79 20 120/65 99 05/07/17 08:14 05/07/17 08:14 05/07/17 08:14 05/07/17 08:14 05/07/17 08:14 Intake and Output: 05/07/17 05/07/17 06:59 18:59 Output Total 1100 Balance -1100 - Medications Medications: Current Medications Diltiazem HCl (Cardizem Cd) 180 mg PO DAILY [facility] Last Admin: 05/06/17 09:40 Dose: Not Given Docusate Sodium (Colace) 100 mg PO TID [facility] Last Admin: 05/06/17 18:48 Dose: 100 mg Ferrous Sulfate (Feosol) 325 mg PO DAILY [facility] Last Admin: 05/06/17 09:40 Dose: 325 mg Ampicillin 2 gm/ Sodium (Chloride) 100 mls @ 100 mls/hr IVPB Q6H [facility] Last Admin: 05/07/17 06:17 Dose: 100 mls/hr Multivitamins/Minerals (Therapeutic-M Tab) 1 tab PO 0800 [facility] Last Admin: 05/06/17 08:23 Dose: 1 tab Saccharomyces Boulardii (Florastor) 250 mg PO BID [facility] Last Admin: 05/06/17 18:48 Dose: 250 mg - Labs Labs: 05/07/17 07:16 05/07/17 07:16 PT 15.1 SECONDS (9.7-12.2) H 05/04/17 07:52 INR 1.3 05/04/17 07:52 APTT 31 SECONDS (21-34) 05/03/17 20:55 Attending/Attestation - Attestation I have personally seen and examined this patient.: Yes I have fully participated in the care of the patient.: Yes I have reviewed all pertinent clinical information, including history, physical exam and plan: Yes Notes (Text): This is late computer entry for 05/05/17. Patient seen, examined, and case discussed with day-time resident. Patient seen post-operative Day 1 s/p placement of IVC filter. Per vascular surgery, patient is stable from their standpoint. Patient is report flatus s/p procedure. Instructed by resident to the use the incentive spirometry (ICS). Patient was seen and evaluated by urology earlier today. Patient's urine culture: positive for VRE UTI. Infectious Disease consulted. Patient started on Ampicillin IV and recommended for 14 days. Discussed with patient, he will think about rehab will need to discuss with his daughter. Patient will need a PICC line for retirement antibiotic use. BUN/Cr improving since post suprapubic prostatetomy Assessment/Plan 1) Obstructive uropathy secondary to Enlarged Prostate s/p Suprapubic Prostatectomy POD 3 - Urology consult, Dr. Shea Mcguire; case discussed with urology - Nephrology consult, Dr. Abdalla-->help appreciated - Infectious disease, Dr. Portillo-->help appreciated - Patient has aguillon in placed and currently on CBI per urology. - Cystoscopy revealed severely enlarged prostate with outflow obstruction - Start on Ampicillin 2mg IV Q 6hours (active since 05/04/17) - Morphine 4mg IVP Q4H PRN, pain moderate per urology - Colace 100mg PO TID - LR 150cc/hr -Surgery management regarding prostatectomy per urology (prepost/intraoperative/ postoperative)-->per urology, cannot be on therapeutic anticoagulation--> patient is s/p IVC filter POD 1 no chemical anticoagulation secondary patient is high risk for bleeding 2) Deep vein thrombosis s/p IVC filter POD 1 - Left venous doppler: common femoral +DVT - Heme-onc consult: Dr. Angelic Geiger help appreciated--> patient is high risk for bleeding given recent GI bleed and recent urologic; recommend IVC filter - Vascular surgery: Dr. Gama help appreciated - s/p POD 1 IVC filter placement-->vascular surgery has signed off. 3) Catheter Associated Urinary Tract Infection - Infectious Disease (Dr. Portillo) on board-->recommend for 14 days of IV abx - Ampicillin 2 gram IV Q 6 Hours (active since 05/04/17) - will setup patient for PICC line and possible rehab placement - Urine culture: +VRE (prior aguillon removed by urology on admission and replaced by urology on this admission) - Blood culture is negative 4) Hypertension - Monitor vital signs - Cardiology Consult, Dr. Higgins, f/u recs - previously saw pt. and cleared for urologic surgery prior to admission. Stress test included in the chart (preop paperwork in chart) -Cardizem 180 mg CD once a day 5) Lower extremity swelling - Confirmed DVT+ per venous doppler; improving - s/p IVC filter POD 1; no chemical anticoagulation secondary to high risk per heme-onc 6) Anemia, hx of Anemia - patients base line Hgb [place] [facility] - s/p 1 unit of PRBC transfusion - question as to recent GI bleed-->will need to get paperwork from [facility] to review prior hospitalization - Continue Ferrous Sulfate 325mg PO qD - No blood transfusion given during urologic procedure - iron studies are low for the patient-->discussed with heme-onc-->likely chronic not acute 7) Hx Diabetes Mellitus - A1c: 5.5 - Accuchecks QAC and HS - Controlled 8) Hx Hyperlipidemia - hold crestor due to prior renal failure 2/2 BPH + urinary retention. 9) Prophylaxis + DVT--> Patient is s/p IVC filter POD 1 insertion; No chemical anticoagulation at this time; patient is high risk for bleed -hold chemical anticoagulation 2/2 hx of GI bleed per review of record; and urologic procedure POD 3-->No SCDS secondary to current DVT -MVI (home med) -s/p IVC filter
[2017-05-05] MEDS: Sodium Chloride 0.45% 1,000 ML IV SCH (14:31)
--- NOTE | 2017-05-05 17:36 | CP.PCM.PN ---
Objective - Vital Signs/Intake and Output Vital Signs (last 24 hours): Temp Pulse Resp BP Pulse Ox 98 F 87 18 127/61 100 05/05/17 15:52 05/05/17 15:52 05/05/17 15:52 05/05/17 15:52 05/05/17 15:52 Intake and Output: 05/05/17 05/05/17 06:59 18:59 Intake Total 2700 925 Output Total 1850 1200 Balance 850 -275 - Medications Medications: Current Medications Diltiazem HCl (Cardizem Cd) 180 mg PO DAILY [facility] Last Admin: 05/05/17 11:08 Dose: 180 mg Docusate Sodium (Colace) 100 mg PO TID [facility] Last Admin: 05/05/17 15:00 Dose: 100 mg Ferrous Sulfate (Feosol) 325 mg PO DAILY [facility] Last Admin: 05/05/17 11:00 Dose: 325 mg Ampicillin 2 gm/ Sodium (Chloride) 100 mls @ 100 mls/hr IVPB Q6H [facility] Last Admin: 05/05/17 12:45 Dose: 100 mls/hr Sodium Chloride (Sodium Chloride 0.45%) 1,000 mls @ 75 mls/hr IV .[id number] [facility] Last Admin: 05/05/17 14:31 Dose: 75 mls/hr Morphine Sulfate (Morphine) 4 mg IVP Q4 PRN PRN Reason: Pain, moderate (4-7) Last Admin: 05/04/17 18:24 Dose: 4 mg Multivitamins/Minerals (Therapeutic-M Tab) 1 tab PO 0800 [facility] Last Admin: 05/05/17 08:20 Dose: 1 tab Saccharomyces Boulardii (Florastor) 250 mg PO BID [facility] Last Admin: 05/05/17 11:08 Dose: 250 mg - Labs Labs: 05/05/17 07:36 05/05/17 07:36 PT 15.1 SECONDS (9.7-12.2) H 05/04/17 07:52 INR 1.3 05/04/17 07:52 APTT 31 SECONDS (21-34) 05/03/17 20:55 Assessment and Plan (1) Acute renal failure Status: Acute (2) Urinary retention Status: Acute (3) Anemia Status: Acute (4) HTN (hypertension) Status: Acute
--- NOTE | 2017-05-05 18:10 | OP ---
UROLOGY OPERATIVE REPORT PROCEDURE DATE: 05/02/2017 PREOPERATIVE DIAGNOSES: Urinary retention and prostatic enlargement. POSTOPERATIVE DIAGNOSES: Urinary retention and prostatic enlargement. PROCEDURES: Cystoscopy. Suprapubic prostatectomy. SURGEON: Alicia Mcguire MD [employer] ATTENDANT: Antonio Mcguire MD PROCEDURE: The patient was in supine position. The abdomen and genitalia were prepped and draped sterilely. Anesthesia was provided by the anesthesiologist. Perioperative antibiotics were administered. A 16-Russian flexible cystoscope was introduced under direct vision. Procedure was performed under video endoscopic control. Urethra, prostate, and bladder were inspected. FINDINGS: The anterior urethra was normal and demonstrated no stricture. The prostatic urethra was occlusive secondary to lateral lobe hypertrophy. There was poor visibility within the bladder. There was no bladder tumor identified. The ureteral orifices were not identified. There was moderate bladder trabeculation. There was lateral lobe prostatic hypertrophy as well as a large intravesical median lobe. There was no stone identified. The cystoscope and sheath were removed. A Diaz catheter was inserted. Bladder was filled with saline. The abdomen was reprepped and draped. A transverse incision was made approximately 2 cm above the pubic symphysis. Incision was extended through skin and subcutaneous tissue where Hemostasis was achieved using electrocautery. The rectus sheath was incised in a transverse direction. The rectus abdominis muscles were retracted in lateral direction, thus gaining entrance into the prevesical space. The prevesical fascia and fat was addressed cephalad. A longitudinal cystotomy was made between sutures of 0-chromic. The bladder was then drained. Additional sutures of 0-chromic were placed in the bladder. The bladder was drained. The bladder was inspected. There was no bladder stone. There was moderate bladder trabeculations. There was marked prostatic hypertrophy with the large intravesical lobe. Enucleation of the prostate was performed. The anterior capsule was divided by blunt dissection. The plane between the adenoma and the prostatic capsule was developed circumferentially beginning anteriorly and proceeding laterally and posteriorly. elevation was achieved using digital rectal examination. The prostatic adenoma was fully removed. Palpation of the prostatic fossa revealed no residual prostatic adenoma. Hemostasis was achieved as follows. [id number] sutures of 0-chromic were placed at the bladder neck. A three-way Diaz catheter was inserted per urethra with its balloon in the bladder. The bladder was then closed in two layers with continuous locking suture of 0-chromic followed by interrupted sutures of 0-chromic. Bladder irrigation was clear. A [place] drain and Nate-Mantilla drains were placed into the prevesical space for drainage of the wound. The rectus abdominis muscle was reapproximated with interrupted sutures of Dexon. The rectus fascia was reapproximated with interrupted suture of 0-Dexon. Subcutaneous tissue was irrigated and reapproximated with 3-0 Dexon. The skin kadeem and a sterile dressings were applied. The approximated blood loss was 300 mL. The vital signs remains stable. The patient tolerated the procedure without complications. The patient was transferred to recovery room in satisfactory condition. Bladder irrigation was light pink. [place] MD May[place] cc: Antonio Mcguire MD
--- NOTE | 2017-05-05 18:29 | CP.PCM.PN ---
Subjective - Date & Time of Evaluation Date of Evaluation: 05/04/17 Time of Evaluation: 11:30 - Subjective Subjective: No complaints, for IVC filter placement Objective - Vital Signs/Intake and Output Vital Signs (last 24 hours): Temp Pulse Resp BP Pulse Ox 98 F 87 18 127/61 100 05/05/17 15:52 05/05/17 15:52 05/05/17 15:52 05/05/17 15:52 05/05/17 15:52 Intake and Output: 05/05/17 05/05/17 06:59 18:59 Intake Total 2700 925 Output Total 1850 1200 Balance 850 -275 - Medications Medications: Current Medications Diltiazem HCl (Cardizem Cd) 180 mg PO DAILY [facility] Last Admin: 05/05/17 11:08 Dose: 180 mg Docusate Sodium (Colace) 100 mg PO TID [facility] Last Admin: 05/05/17 15:00 Dose: 100 mg Ferrous Sulfate (Feosol) 325 mg PO DAILY [facility] Last Admin: 05/05/17 11:00 Dose: 325 mg Ampicillin 2 gm/ Sodium (Chloride) 100 mls @ 100 mls/hr IVPB Q6H [facility] Last Admin: 05/05/17 12:45 Dose: 100 mls/hr Sodium Chloride (Sodium Chloride 0.45%) 1,000 mls @ 75 mls/hr IV .[id number] [facility] Last Admin: 05/05/17 14:31 Dose: 75 mls/hr Morphine Sulfate (Morphine) 4 mg IVP Q4 PRN PRN Reason: Pain, moderate (4-7) Last Admin: 05/04/17 18:24 Dose: 4 mg Multivitamins/Minerals (Therapeutic-M Tab) 1 tab PO 0800 [facility] Last Admin: 05/05/17 08:20 Dose: 1 tab Saccharomyces Boulardii (Florastor) 250 mg PO BID [facility] Last Admin: 05/05/17 11:08 Dose: 250 mg - Labs Labs: 05/05/17 07:36 05/05/17 07:36 PT 15.1 SECONDS (9.7-12.2) H 05/04/17 07:52 INR 1.3 05/04/17 07:52 APTT 31 SECONDS (21-34) 05/03/17 20:55 - Head Exam Head Exam: ATRAUMATIC - Eye Exam Eye Exam: Normal appearance - ENT Exam ENT Exam: Mucous Membranes Dry - Respiratory Exam Respiratory Exam: NORMAL BREATHING PATTERN - Cardiovascular Exam Cardiovascular Exam: +S1, +S2 - GI/Abdominal Exam GI & Abdominal Exam: Normal Bowel Sounds Assessment and Plan (1) DVT (deep venous thrombosis) Assessment & Plan: provoked high risk for anticoauglation for IVC filter placement Status: Acute (2) Anemia Assessment & Plan: hx of GI bleeding recent surgery with hematuria transfusion support PRN Status: Acute
--- NOTE | 2017-05-05 18:30 | CP.PCM.PN ---
Subjective - Date & Time of Evaluation Date of Evaluation: 05/05/17 Time of Evaluation: 14:00 - Subjective Subjective: No complaints s/p IVC filter Objective - Vital Signs/Intake and Output Vital Signs (last 24 hours): Temp Pulse Resp BP Pulse Ox 98 F 87 18 127/61 100 05/05/17 15:52 05/05/17 15:52 05/05/17 15:52 05/05/17 15:52 05/05/17 15:52 Intake and Output: 05/05/17 05/05/17 06:59 18:59 Intake Total 2700 925 Output Total 1850 1200 Balance 850 -275 - Medications Medications: Current Medications Diltiazem HCl (Cardizem Cd) 180 mg PO DAILY [facility] Last Admin: 05/05/17 11:08 Dose: 180 mg Docusate Sodium (Colace) 100 mg PO TID [facility] Last Admin: 05/05/17 15:00 Dose: 100 mg Ferrous Sulfate (Feosol) 325 mg PO DAILY [facility] Last Admin: 05/05/17 11:00 Dose: 325 mg Ampicillin 2 gm/ Sodium (Chloride) 100 mls @ 100 mls/hr IVPB Q6H [facility] Last Admin: 05/05/17 12:45 Dose: 100 mls/hr Sodium Chloride (Sodium Chloride 0.45%) 1,000 mls @ 75 mls/hr IV .[id number] [facility] Last Admin: 05/05/17 14:31 Dose: 75 mls/hr Morphine Sulfate (Morphine) 4 mg IVP Q4 PRN PRN Reason: Pain, moderate (4-7) Last Admin: 05/04/17 18:24 Dose: 4 mg Multivitamins/Minerals (Therapeutic-M Tab) 1 tab PO 0800 [facility] Last Admin: 05/05/17 08:20 Dose: 1 tab Saccharomyces Boulardii (Florastor) 250 mg PO BID [facility] Last Admin: 05/05/17 11:08 Dose: 250 mg - Labs Labs: 05/05/17 07:36 05/05/17 07:36 PT 15.1 SECONDS (9.7-12.2) H 05/04/17 07:52 INR 1.3 05/04/17 07:52 APTT 31 SECONDS (21-34) 05/03/17 20:55 - Head Exam Head Exam: ATRAUMATIC - Eye Exam Eye Exam: Normal appearance - ENT Exam ENT Exam: Mucous Membranes Dry - Respiratory Exam Respiratory Exam: NORMAL BREATHING PATTERN - Cardiovascular Exam Cardiovascular Exam: +S1, +S2 - GI/Abdominal Exam GI & Abdominal Exam: Normal Bowel Sounds - Extremities Exam Extremities Exam: Pedal Edema Assessment and Plan (1) DVT (deep venous thrombosis) Assessment & Plan: provoked high risk for anticoagulation s/p IVC filter Status: Acute (2) Anemia Assessment & Plan: hx of GI bleeding blood loss transfusion support PRN Status: Acute
[2017-05-06 01:00] VITALS: RESP 20
[2017-05-06] MEDS: AMPicillin 2 GM in Sodium Chloride 0.9% 100 ML IVPB SCH ×4 (01:00→18:48)
[2017-05-06] MEDS: Sodium Chloride 0.45% 1,000 ML IV SCH ×2 (05:49→23:25)
--- NOTE | 2017-05-06 07:42 | CP.PCM.PN ---
<Kayden Camacho - Last Filed: 05/06/17 14:17> Subjective - Date & Time of Evaluation Date of Evaluation: 05/06/17 Time of Evaluation: 07:39 - Subjective Subjective: PGY1 Note for Dr. Rosenbaum HPI: Patient seen and examined at bedside. Doing well with no complaints at this time. Discussed that he needs a picc line or 14day course of antibiotics and had the patient sign the consent after discussing the risks and benefits of the procedure. Patient concerned that he is passing more gas than stool and i told him that this was normal after a surgical procedure of this magnitude. Patient denies any pain at the insertion site of the IVC filter. No CP, SOB, F/N /V/D. Objective - Vital Signs/Intake and Output Vital Signs (last 24 hours): Temp Pulse Resp BP Pulse Ox 99.2 F 74 20 101/53 L 99 05/05/17 23:35 05/05/17 23:35 05/05/17 23:35 05/05/17 23:35 05/05/17 23:35 Intake and Output: 05/06/17 05/06/17 06:59 18:59 Intake Total 600 Output Total 2600 Balance -1999 - Medications Medications: Current Medications Diltiazem HCl (Cardizem Cd) 180 mg PO DAILY [facility] Last Admin: 05/05/17 11:08 Dose: 180 mg Docusate Sodium (Colace) 100 mg PO TID [facility] Last Admin: 05/05/17 19:04 Dose: 100 mg Ferrous Sulfate (Feosol) 325 mg PO DAILY [facility] Last Admin: 05/05/17 11:00 Dose: 325 mg Ampicillin 2 gm/ Sodium (Chloride) 100 mls @ 100 mls/hr IVPB Q6H [facility] Last Admin: 05/06/17 06:00 Dose: 100 mls/hr Morphine Sulfate (Morphine) 4 mg IVP Q4 PRN PRN Reason: Pain, moderate (4-7) Last Admin: 05/04/17 18:24 Dose: 4 mg Multivitamins/Minerals (Therapeutic-M Tab) 1 tab PO 0800 [facility] Last Admin: 05/05/17 08:20 Dose: 1 tab Saccharomyces Boulardii (Florastor) 250 mg PO BID [facility] Last Admin: 05/05/17 19:04 Dose: 250 mg - Labs Labs: 05/05/17 07:36 08/31/17 07:36 PT 15.1 SECONDS (9.7-12.2) H 05/04/17 07:52 INR 1.3 05/04/17 07:52 APTT 31 SECONDS (21-34) 05/03/17 20:55 - Constitutional Appears: Well, Non-toxic, No Acute Distress - Head Exam Head Exam: ATRAUMATIC, NORMAL INSPECTION, NORMOCEPHALIC - Eye Exam Eye Exam: EOMI - ENT Exam ENT Exam: Mucous Membranes Moist - Respiratory Exam Respiratory Exam: Clear to Ausculation Bilateral, NORMAL BREATHING PATTERN. absent: Rales, Rhonchi, Wheezes - Cardiovascular Exam Cardiovascular Exam: REGULAR RHYTHM, Murmur. absent: Bradycardia, Tachycardia - GI/Abdominal Exam GI & Abdominal Exam: Soft, Tenderness (mild tenderness around incision site), Normal Bowel Sounds. absent: Distended - Extremities Exam Extremities Exam: absent: Joint Swelling, Tenderness - Neurological Exam Neurological Exam: Alert, Awake, Oriented x3 - Psychiatric Exam Psychiatric exam: Normal Affect, Normal Mood - Skin Skin Exam: Dry, Intact, Normal Color, Warm Assessment and Plan - Assessment and Plan (Free Text) Assessment: UTI (VRE) * One more day of IV Ampicillin * D/C on PO Ampicillin tomorrow Acute Renal Failure * Nephro ([place]) * 1/2 NS @ 75 * avoid nephrotoxic agents * renal US - Echogenic renal parenchyma, consider intrinsic medical renal dz. No obstructive uropathy, Distended GB with sludge and stones s/p Suprapubic Prostatectomy 2/2 BPH * Urology (Shae Mcguire) - ok for D/c tomorrow * Cystoscopy revealed severely enlarged prostate with outflow obstruction * Morphine 4mg IVP Q4H PRN, pain moderate * Colace 100mg PO TID * continous bladder irrigation Hypertension * Amlodipine 10mg QD in am * Cardizem 180mg PO QD * Cardiology ([place]) * previously cleared patient for surgery Lower extremity swelling * LE doppler showed DVT of common fem on the L * Vascular surgery ([place]) * IVC filter place on 05/05 Anemia * patients base line Hgb from prior [facility] visit is 8.9 * Ferrous Sulfate 325mg PO QD * Heme ([place]) * Recommend IVC filter Hx Diabetes Mellitus * A1c - 5.5 Hx Hyperlipidemia * hold crestor due to prior renal failure 2/2 BPH + urinary retention. * Lipid Panel * TG - 82 * Cholesterol - 122 * LDL - 74 * HDL - 27 * Outpatient Fish Oil PPX * IVC Filter, C/I chemical anticoagulation 2/2 bleeding on CBI * MVI (home med) * ICS 10x/hr * Florastor 250 PO BID <Yun Rosenbaum V - Last Filed: 05/07/17 10:09> Objective - Vital Signs/Intake and Output Vital Signs (last 24 hours): Temp Pulse Resp BP Pulse Ox 97.4 F L 79 20 120/65 99 05/07/17 08:14 05/07/17 08:14 05/07/17 08:14 05/07/17 08:14 05/07/17 08:14 Intake and Output: 05/07/17 05/07/17 06:59 18:59 Output Total 1100 Balance -1100 - Medications Medications: Current Medications Diltiazem HCl (Cardizem Cd) 180 mg PO DAILY [facility] Last Admin: 05/06/17 09:40 Dose: Not Given Docusate Sodium (Colace) 100 mg PO TID [facility] Last Admin: 05/06/17 18:48 Dose: 100 mg Ferrous Sulfate (Feosol) 325 mg PO DAILY [facility] Last Admin: 05/06/17 09:40 Dose: 325 mg Ampicillin 2 gm/ Sodium (Chloride) 100 mls @ 100 mls/hr IVPB Q6H [facility] Last Admin: 05/07/17 06:17 Dose: 100 mls/hr Multivitamins/Minerals (Therapeutic-M Tab) 1 tab PO 0800 [facility] Last Admin: 05/06/17 08:23 Dose: 1 tab Saccharomyces Boulardii (Florastor) 250 mg PO BID [facility] Last Admin: 05/06/17 18:48 Dose: 250 mg - Labs Labs: 05/07/17 07:16 05/07/17 07:16 PT 15.1 SECONDS (9.7-12.2) H 05/04/17 07:52 INR 1.3 05/04/17 07:52 APTT 31 SECONDS (21-34) 05/03/17 20:55 Attending/Attestation - Attestation I have personally seen and examined this patient.: Yes I have fully participated in the care of the patient.: Yes I have reviewed all pertinent clinical information, including history, physical exam and plan: Yes Notes (Text): This is late computer entry for 05/06/17 Patient seen, examined, and case discussed with day-time resident. Patient seen post-operative Day 2 s/p placement of IVC filter. Per vascular surgery, patient is stable from their standpoint. Patient is report flatus and bowel movement. Patient seen with urology team. Dr Mcguire had spoken with Dr. Portillo, patient does not need IV abx, only PO antibiotic and PICC line cancelled ; vascular nurse, Fernanda informed. Patient to be switched to PO antibiotic tomorrow and possible discharge to home. Patient will follow-up with urology with aguillon and for staple removal; tentatively for , and instructed by urology to call at any time. Discussed with infectious disease, for 7 days of Ampicillin to cover for catheter associated urinary tract infection. Will follow-up with heme-onc regarding monitoring patient for DVT s/p IC filter. Patient will need to be establish with the clinic upon hospital discharge. Assessment/Plan 1) Obstructive uropathy secondary to Enlarged Prostate s/p Suprapubic Prostatectomy POD 4 - Urology consult, Dr. Shae Mcguire; case discussed with urology - Nephrology consult, Dr. Abdalla-->help appreciated - Infectious disease, Dr. Portillo-->help appreciated - Patient has aguillon in placed-->will be discharge with aguillon and staple removal by urology with f/u outpatient urology upon discharge - Cystoscopy revealed severely enlarged prostate with outflow obstruction - Start on Ampicillin 2mg IV Q 6hours (active since 05/04/17)-->switch to 7 day course of Ampicillin PO - Morphine 4mg IVP Q4H PRN, pain moderate per urology - Colace 100mg PO TID - LR 150cc/hr -Surgery management regarding prostatectomy per urology (prepost/intraoperative/ postoperative)-->per urology, cannot be on therapeutic anticoagulation--> patient is s/p IVC filter POD 2 no chemical anticoagulation secondary patient is high risk for bleeding 2) Deep vein thrombosis s/p IVC filter POD 2 - Left venous doppler: common femoral +DVT - Heme-onc consult: Dr. Angelic Geiger help appreciated--> patient is high risk for bleeding given recent GI bleed and recent urologic; recommend IVC filter - Vascular surgery: Dr. Gama help appreciated - s/p POD 2 IVC filter placement-->vascular surgery has signed off. 3) Catheter Associated Urinary Tract Infection - Infectious Disease (Dr. Portillo) on board-->recommend for 7 day course of PO antibiotic (not IV Abx/PICC line cancelled) - Ampicillin 2 gram IV Q 6 Hours (active since 05/04/17) - Urine culture: +VRE (prior aguillon removed by urology on admission and replaced by urology on this admission) - Blood culture is negative and afebrile 4) Hypertension - Monitor vital signs - Cardiology Consult, Dr. Higgins, f/u recs - previously saw pt. and cleared for urologic surgery prior to admission. Stress test included in the chart (preop paperwork in chart) -Cardizem 180 mg CD once a day 5) Lower extremity swelling - Confirmed DVT+ per venous doppler; improving - s/p IVC filter POD 2; no chemical anticoagulation secondary to high risk per heme-onc 6) Anemia, hx of Anemia - patients base line Hgb from prior [facility] - s/p 1 unit of PRBC transfusion - question as to recent GI bleed-->will need to get paperwork from [facility] to review prior hospitalization - Continue Ferrous Sulfate 325mg PO qD - No blood transfusion given during urologic procedure - iron studies are low for the patient-->discussed with heme-onc-->likely chronic not acute 7) Hx Diabetes Mellitus - A1c: 5.5 - Accuchecks QAC and HS - Controlled 8) Hx Hyperlipidemia - hold crestor due to prior renal failure 2/2 BPH + urinary retention. 9) Prophylaxis + DVT--> Patient is s/p IVC filter POD 2 insertion; No chemical anticoagulation at this time; patient is high risk for bleed -hold chemical anticoagulation 2/2 hx of GI bleed per review of record; and urologic procedure POD 3-->No SCDS secondary to current DVT -MVI (home med) -s/p IVC filter
[2017-05-06 07:52] LABS: BASO % 0.5 % (0.0-2.0); EOS # 0.3 K/uL (0.0-0.7); HEMATOCRIT 22.6 % (35.0-51.0); LYMPH # 1.4 K/uL (1.0-4.3); LYMPH % 20.2 % (20.0-40.0); MEAN CELL VOLUME 87.5 fL (80.0-94.0); MEAN CORPUSCULAR HEMOGLOBIN 29.3 pg (27.0-31.0); MEAN CORPUSCULAR HGB CONC 33.4 g/dL (33.0-37.0); MEAN PLATELET VOLUME 8.5 fL (7.2-11.7); MONO # 0.6 K/uL (0.0-0.8); MONO % 8.1 % (0.0-10.0); RED CELL DISTRIBUTION WIDTH 15.4 % (11.5-14.5); WHITE BLOOD COUNT 7.1 K/uL (4.8-10.8)
[2017-05-06 08:13] LABS: CHLORIDE 105 mmol/L (98-107); POTASSIUM 3.6 mmol/L (3.6-5.2); SODIUM 139 mmol/L (132-148)
[2017-05-06 08:15] LABS: BILIRUBIN,TOTAL 0.5 mg/dL (0.2-1.3); CARBON DIOXIDE 28 mmol/L (22-30); GFR AFRICAN-AMERICAN > 60
[2017-05-06 08:16] LABS: ALB/GLOB RATIO 0.8 (1.0-2.1); ALKALINE PHOSPHATASE 56 U/L (38-126); ALT/SGPT 25 U/L (21-72); AST/SGOT 13 U/L (17-59); BLOOD UREA NITROGEN 10 mg/dL (9-20); GLUCOSE,RANDOM 107 mg/dL (75-110); PHOSPHOROUS 3.5 mg/dL (2.5-4.5); TOTAL PROTEIN 6.2 g/dL (6.3-8.3)
[2017-05-06 08:17] LABS: CALCIUM 8.2 mg/dl (8.6-10.4); MAGNESIUM 1.9 mg/dL (1.6-2.3)
[2017-05-06] MEDS: Multivitamin With Minerals Tab PO SCH (08:23)
[2017-05-06] MEDS: diltiaZEM 180 mg/24 Hours CD Cap PO SCH (09:40)
[2017-05-06] MEDS: Saccharomyces Boulardi 250 mg Cap PO SCH ×2 (09:41→18:48)
[2017-05-06 14:31] LABS: BASO # 0.1 K/uL (0.0-0.2); EOS # 0.3 K/uL (0.0-0.7); EOS % 3.6 % (0.0-4.0); HEMATOCRIT 23.6 % (35.0-51.0); LYMPH # 1.3 K/uL (1.0-4.3); LYMPH % 17.8 % (20.0-40.0); MEAN CELL VOLUME 88.3 fL (80.0-94.0); MEAN CORPUSCULAR HEMOGLOBIN 29.1 pg (27.0-31.0); MEAN PLATELET VOLUME 8.7 fL (7.2-11.7); MONO # 0.6 K/uL (0.0-0.8); MONO % 8.2 % (0.0-10.0); NRBC % 0.1 % (0.0-2.0); RED CELL DISTRIBUTION WIDTH 15.4 % (11.5-14.5); WHITE BLOOD COUNT 7.2 K/uL (4.8-10.8)
--- NOTE | 2017-05-06 18:34 | CP.PCM.PN ---
Subjective - Date & Time of Evaluation Date of Evaluation: 05/06/17 Time of Evaluation: 08:00 - Subjective Subjective: IV RX IN PROGRESS TO SWITCH TO PO AND FOLLOW UP WITH Objective - Vital Signs/Intake and Output Vital Signs (last 24 hours): Temp Pulse Resp BP Pulse Ox 98.3 F 76 20 136/60 100 05/06/17 15:15 05/06/17 15:15 05/06/17 15:15 05/06/17 15:15 05/06/17 15:15 Intake and Output: 05/06/17 05/06/17 06:59 18:59 Intake Total 600 550 Output Total 2600 1200 Balance -2000 -650 - Medications Medications: Current Medications Diltiazem HCl (Cardizem Cd) 180 mg PO DAILY [facility] Last Admin: 05/06/17 09:40 Dose: Not Given Docusate Sodium (Colace) 100 mg PO TID [facility] Last Admin: 05/06/17 13:10 Dose: 100 mg Ferrous Sulfate (Feosol) 325 mg PO DAILY [facility] Last Admin: 05/06/17 09:40 Dose: 325 mg Ampicillin 2 gm/ Sodium (Chloride) 100 mls @ 100 mls/hr IVPB Q6H [facility] Last Admin: 05/06/17 13:10 Dose: 100 mls/hr Multivitamins/Minerals (Therapeutic-M Tab) 1 tab PO 0800 [facility] Last Admin: 05/06/17 08:23 Dose: 1 tab Saccharomyces Boulardii (Florastor) 250 mg PO BID [facility] Last Admin: 05/06/17 09:41 Dose: 250 mg - Labs Labs: 05/06/17 14:21 05/06/17 07:43 PT 15.1 SECONDS (9.7-12.2) H 05/04/17 07:52 INR 1.3 05/04/17 07:52 APTT 31 SECONDS (21-34) 05/03/17 20:55 - Constitutional Appears: Non-toxic, Chronically Ill - Head Exam Head Exam: NORMOCEPHALIC - Eye Exam Eye Exam: PERRL - ENT Exam ENT Exam: Mucous Membranes Dry - Neck Exam Neck Exam: absent: Lymphadenopathy - Respiratory Exam Respiratory Exam: Decreased Breath Sounds - Cardiovascular Exam Cardiovascular Exam: REGULAR RHYTHM - GI/Abdominal Exam GI & Abdominal Exam: Distended, Soft Assessment and Plan (1) BPH (benign prostatic hyperplasia) Status: Acute (2) Sepsis Status: Acute (3) VRE (vancomycin resistant enterococcus) culture positive Status: Acute (4) Acute renal failure Status: Acute (5) Anemia Status: Acute (6) DVT (deep venous thrombosis) Status: Acute (7) HTN (hypertension) Status: Acute (8) Urinary retention Status: Acute
--- NOTE | 2017-05-06 19:09 | PCM.URO ---
Urology Progress Note - General General: No Complaints, Tolerating Diet (had BM) - Subjective Abdominal Pain: No Flank Pain: No Nausea: No Vomiting: No Hematuria: Yes (sl pink via aguillon) Stone Passed: No Dsypnea: No Chest Pain: No Fever & Chills: No - Objective Lab Studies: Reviewed (hct=23, stable creat=1.1 urine culture negative) Lab Results Last 24 Hours: Laboratory Results - last 24 hr 05/06/17 05/06/17 05/06/17 07:43 07:43 14:21 WBC 7.1 7.2 RBC 2.58 L 2.67 L Hgb 7.5 L 7.8 L Hct 22.6 L 23.6 L MCV 87.5 88.3 MCH 29.3 29.1 MCHC 33.4 33.0 RDW 15.4 H 15.4 H Plt Count 180 191 MPV 8.5 8.7 Neut % (Auto) 67.2 69.4 Lymph % (Auto) 20.2 17.8 L [place] % (Auto) 8.1 8.2 Eos % (Auto) 4.0 3.6 Baso % (Auto) 0.5 1.0 Neut # 4.7 5.0 Lymph # 1.4 1.3 [place] # 0.6 0.6 Eos # 0.3 0.3 Baso # 0.0 0.1 Sodium 139 Potassium 3.6 Chloride 105 Carbon Dioxide 28 Anion Gap 9 L BUN 10 Creatinine 1.1 Est GFR ( Amer) > 60 Est GFR (Non-Af Amer) > 60 Random Glucose 107 Calcium 8.2 L Phosphorus 3.5 Magnesium 1.9 Total Bilirubin 0.5 AST 13 L ALT 25 Alkaline Phosphatase 56 Total Protein 6.2 L Albumin 2.8 L Globulin 3.4 Albumin/Globulin Ratio 0.8 L Intake & Output: Intake & Output 05/06/17 05/06/17 05/07/17 06:59 18:59 06:59 Intake Total 600 550 Output Total 2600 1200 Balance -1999 - Intake: Intake, IV Amount 600 100 Right Forearm 600 100 Oral 450 Output: Urine 2600 1200 Urethral ([place]) 2600 1200 Other: # Bowel Movements 0 Vital Signs: Vital Signs - 24 hr 05/05/17 05/06/17 05/06/17 23:35 08:25 15:15 Temperature 99.2 F 98.3 F 98.3 F Pulse Rate 74 68 76 Respiratory 20 20 20 Rate Blood Pressure 101/53 L 110/53 L 136/60 O2 Sat by Pulse 99 98 100 Oximetry - Physical Exam Abdominal Exam: Soft, Non-Tender, Non-Distended Wound: Clean, Healing Well Back: No CVA Tenderness Genitalia: Without Inflammation Urine Color: Clear Extremities: Normal: Bilateral - Male Phallus: Normal, Uncircumcised Scrotum: Normal Testes: Normal: Bilateral - Plan Wound Care: Yes Catheter Care: Yes Ambulation - Out of Bed: Yes Discontinue Intravenous Fluids: Yes Intake & Output: Yes Additional Information: Imp: progressing well. Pathology report reviewed with pathologist and hospitalist; not yet reviewed with pt and family. on vit, fe. on ampicillin. discussed w pt, ID credit consultant, and resident staff and hospitalist. aguillon in place - Date & Time of Note Date: 05/06/17 Time: 11:10
[2017-05-07] MEDS: AMPicillin 2 GM in Sodium Chloride 0.9% 100 ML IVPB SCH ×2 (01:15→06:17)
[2017-05-07 07:26] LABS: BASO % 0.7 % (0.0-2.0); EOS # 0.3 K/uL (0.0-0.7); HEMATOCRIT 24.5 % (35.0-51.0); LYMPH # 1.6 K/uL (1.0-4.3); LYMPH % 23.5 % (20.0-40.0); MEAN CELL VOLUME 88.6 fL (80.0-94.0); MEAN CORPUSCULAR HEMOGLOBIN 29.2 pg (27.0-31.0); MEAN CORPUSCULAR HGB CONC 32.9 g/dL (33.0-37.0); MEAN PLATELET VOLUME 8.6 fL (7.2-11.7); MONO # 0.6 K/uL (0.0-0.8); NRBC % 0.1 % (0.0-2.0); RED CELL DISTRIBUTION WIDTH 15.5 % (11.5-14.5); WHITE BLOOD COUNT 6.8 K/uL (4.8-10.8)
[2017-05-07 07:55] LABS: ALB/GLOB RATIO 0.9 (1.0-2.1); ALKALINE PHOSPHATASE 60 U/L (38-126); ALT/SGPT 24 U/L (21-72); AST/SGOT 15 U/L (17-59); BILIRUBIN,TOTAL 0.4 mg/dL (0.2-1.3); BLOOD UREA NITROGEN 10 mg/dL (9-20); CALCIUM 8.8 mg/dl (8.6-10.4); CARBON DIOXIDE 25 mmol/L (22-30); CHLORIDE 103 mmol/L (98-107); GFR AFRICAN-AMERICAN > 60; GLUCOSE,RANDOM 103 mg/dL (75-110); MAGNESIUM 1.9 mg/dL (1.6-2.3); PHOSPHOROUS 3.9 mg/dL (2.5-4.5); POTASSIUM 3.9 mmol/L (3.6-5.2); SODIUM 138 mmol/L (132-148); TOTAL PROTEIN 6.2 g/dL (6.3-8.3)
[2017-05-07 08:15] VITALS: BP 120/65; PULSE 79; TEMP 97.4; O2SAT 99
[2017-05-07] MEDS: Multivitamin With Minerals Tab PO SCH (10:09)
[2017-05-07] MEDS: diltiaZEM 180 mg/24 Hours CD Cap PO SCH (10:09)
[2017-05-07] MEDS: Saccharomyces Boulardi 250 mg Cap PO SCH (10:09)
--- NOTE | 2017-05-07 20:17 | CP.PCM.DIS ---
<Meggan Gomez DO - Last Filed: 05/07/17 20:08> Provider - Provider Date of Admission: 05/02/17 12:24 Attending physician: Yun Rosenbaum DO Consults: Dr. Fely Gama Time Spent in preparation of Discharge (in minutes): 40 Diagnosis - Discharge Diagnosis (1) VRE (vancomycin resistant enterococcus) culture positive Status: Acute Comment: Patient treated with IV ampicillin and discharged on PO. (2) BPH (benign prostatic hyperplasia) Status: Acute Comment: Patient s/p suprapubic prostatectomy and is to follow up with Dr. Mcguire for aguillon and staple removal this week. (3) Acute renal failure Status: Acute Comment: Renal status improved s/p prostatectomy and with IV fluid treatment. Hospital Course - Lab Results Lab Results: Micro Results 05/04/17 00:20 Blood Blood Culture - Preliminary NO GROWTH AFTER 3 DAYS 05/04/17 09:03 Urine,Aguillon Urine Culture - Final No Growth (<1,000 CFU/ML) 05/02/17 08:55 Urine,Aguillon Urine Culture - Final Vancomycin Res E.faecalis Most Recent Lab Values WBC 6.8 K/uL (4.8-10.8) 05/07/17 07:16 RBC 2.77 Mil/uL (4.40-5.90) L 05/07/17 07:16 Hgb 8.1 g/dL (12.0-18.0) L 05/07/17 07:16 Hct 24.5 % (35.0-51.0) L 05/07/17 07:16 MCV 88.6 fL (80.0-94.0) 05/07/17 07:16 MCH 29.2 pg (27.0-31.0) 05/07/17 07:16 MCHC 32.9 g/dL (33.0-37.0) L 05/07/17 07:16 RDW 15.5 % (11.5-14.5) H 05/07/17 07:16 Plt Count 213 K/uL (130-400) 05/07/17 07:16 MPV 8.6 fL (7.2-11.7) 05/07/17 07:16 Neut % (Auto) 62.8 % (50.0-75.0) 05/07/17 07:16 Lymph % (Auto) 23.5 % (20.0-40.0) 05/07/17 07:16 [place] % (Auto) 9.0 % (0.0-10.0) 05/07/17 07:16 Eos % (Auto) 4.0 % (0.0-4.0) 05/07/17 07:16 Baso % (Auto) 0.7 % (0.0-2.0) 05/07/17 07:16 Neut # 4.3 K/uL (1.8-7.0) 05/07/17 07:16 Lymph # 1.6 K/uL (1.0-4.3) 05/07/17 07:16 [place] # 0.6 K/uL (0.0-0.8) 05/07/17 07:16 Eos # 0.3 K/uL (0.0-0.7) 05/07/17 07:16 Baso # 0.0 K/uL (0.0-0.2) 05/07/17 07:16 Retic Count 1.4 % (0.5-1.5) 05/03/17 07:53 Haptoglobin 150 mg/dL (43-212) 05/03/17 07:53 PT 15.1 SECONDS (9.7-12.2) H 05/04/17 07:52 INR 1.3 05/04/17 07:52 APTT 31 SECONDS (21-34) 05/03/17 20:55 Puncture Site Lra 05/03/17 18:30 pCO2 38 mm/Hg (35-45) 05/03/17 18:30 pO2 77 mm/Hg (80-100) L 05/03/17 18:30 HCO3 27.2 mmol/L (21-28) 05/03/17 18:30 ABG pH 7.46 (7.35-7.45) H 05/03/17 18:30 ABG Total CO2 28.2 mmol/L (22-28) H 05/03/17 18:30 ABG O2 Saturation 99.4 % (95-98) H 05/03/17 18:30 ABG Base Excess 2.9 mmol/L (-2.0-3.0) 05/03/17 18:30 ABG Hemoglobin 6.9 g/dL (11.7-17.4) L 05/03/17 18:30 ABG Carboxyhemoglobin 2.7 % (0.5-1.5) H 05/03/17 18:30 POC ABG HHb (Measured) 0.6 % (0.0-5.0) 05/03/17 18:30 ABG Methemoglobin 0.9 % (0.0-3.0) 05/03/17 18:30 Bulmaro Test Pos 05/03/17 18:30 A-a O2 Difference 25.0 mm/Hg 05/03/17 18:30 Respiratory Index 0.3 05/03/17 18:30 Hgb O2 Saturation 95.8 % (95.0-98.0) 05/03/17 18:30 FiO2 21.0 % 05/03/17 18:30 Sodium 138 mmol/L (132-148) 05/07/17 07:16 Potassium 3.9 mmol/L (3.6-5.2) 05/07/17 07:16 Chloride 103 mmol/L (98-107) 05/07/17 07:16 Carbon Dioxide 25 mmol/L (22-30) 05/07/17 07:16 Anion Gap 14 (10-20) 05/07/17 07:16 BUN 10 mg/dL (9-20) 05/07/17 07:16 Creatinine 1.0 MG/DL (0.8-1.5) 05/07/17 07:16 Est GFR ( Amer) > 60 05/07/17 07:16 Est GFR (Non-Af Amer) > 60 05/07/17 07:16 POC Glucose (mg/dL) 109 mg/dL (65-110) 05/04/17 06:33 Random Glucose 103 mg/dL (75-110) 05/07/17 07:16 Hemoglobin A1c 5.5 % (4.2-6.5) 05/03/17 07:53 Calcium 8.8 mg/dl (8.6-10.4) 05/07/17 07:16 Phosphorus 3.9 mg/dL (2.5-4.5) 05/07/17 07:16 Magnesium 1.9 mg/dL (1.6-2.3) 05/07/17 07:16 Iron 17 ug/dL (49-181) L 05/02/17 22:44 TIBC 242 ug/dL (250-450) L 05/03/17 07:53 % Saturation 5 (20-55) L 05/03/17 07:53 Ferritin 113.0 ng/mL 05/03/17 07:53 Total Bilirubin 0.4 mg/dL (0.2-1.3) 05/07/17 07:16 AST 15 U/L (17-59) L 05/07/17 07:16 ALT 24 U/L (21-72) 05/07/17 07:16 Alkaline Phosphatase 60 U/L (38-126) 05/07/17 07:16 Total Protein 6.2 g/dL (6.3-8.3) L 05/07/17 07:16 Albumin 2.9 g/dL (3.5-5.0) L 05/07/17 07:16 Globulin 3.4 gm/dL (2.2-3.9) 05/07/17 07:16 Albumin/Globulin Ratio 0.9 (1.0-2.1) L 05/07/17 07:16 Triglycerides 82 mg/dL (0-149) 05/04/17 07:52 Cholesterol 122 mg/dL (0-199) 05/04/17 07:52 LDL Cholesterol Direct 74 mg/dL (0-129) 05/04/17 07:52 HDL Cholesterol 27 mg/dL (30-70) L 05/04/17 07:52 Vitamin B12 351 pg/mL (239-931) 05/03/17 07:53 Folate > 20.0 ng/mL 05/03/17 07:53 Urine Color Yellow (YELLOW) 05/02/17 12:25 Urine Clarity Hazy (Clear) 05/02/17 12:25 Urine pH 5.0 (5.0-8.0) 05/02/17 12:25 Ur Specific [place] 1.010 (1.003-1.030) 05/02/17 12:25 Urine Protein 1+ mg/dL (NEGATIVE) H 05/02/17 12:25 Urine Glucose (UA) Normal mg/dL (Normal) 05/02/17 12:25 Urine Ketones Negative mg/dL (NEGATIVE) 05/02/17 12:25 Urine Blood 3+ (NEGATIVE) H 05/02/17 12:25 Urine Nitrate Negative (NEGATIVE) 05/02/17 12:25 Urine Bilirubin Negative (NEGATIVE) 05/02/17 12:25 Urine Urobilinogen Normal mg/dL (0.2-1.0) 05/02/17 12:25 Ur Leukocyte Esterase 3+ Vince/uL (Negative) H 05/02/17 12:25 Urine WBC (Auto) 323 /hpf (0-5) H 05/02/17 12:25 Urine RBC (Auto) 58 /hpf (0-3) H 05/02/17 12:25 Urine WBC Clumps (Auto) Many /hpf (NONE) H 05/02/17 12:25 Urine Bacteria Occ (<OCC) H 05/02/17 12:25 Blood Type A POSITIVE 05/02/17 07:26 Blood Type Confirm A POSITIVE 05/02/17 07:26 Antibody Screen Negative 05/02/17 07:26 - Hospital Course Hospital Course: On Admission: This 81M with PMHx of BPH, Anemia, HTN, Renal Failure 2/2 urinary retention, HLD , DM, hx GI Bleed - sent to ED by daughter on 04/04/17 due to urinary retention 2 /[address] Mcguire saw patient in the ED on 04/04, and plan was for patient to return home on a trial of Flomax, to be followed as an outpatient. He failed the Flomax trial, and returned to the ED today, 05/[address] Mcguire. Cystoscopy revealed severely enlarged prostate, leading to a successful suprapubic prostatectomy. He is recovering well, is receiving pain management, and admits his abdomen feels sore, rating the pain a 1/10. Of note, [place] [facility] [place] renal failure secondary to BPH and urinary retention. He was in severe condition at that time, with a high level of acidosis requiring dialysis. Patient also c/o lower extremity swelling for the past week, since starting his new medication, Amlodipine 10mg PO qD. He denies any prior history of edema. Last BM was 2-3 days ago, however patient does not feel constipated. During hospitalization: Patient seen by ID Dr Portillo for VRE in urine. Patient treated with IV ampicillin and is to continue PO on discharge. Blood cultures were negative. Patient had suprapubic prostatectomy with Dr. Mcguire. Patient had enlarged prostate with outflow obstruction on cystoscopy. Patient is to follow up with Dr. Mcguire this coming week for aguillon and staple removal. Patient was evaluated by vascular surgeon, Dr. Gama for left common femoral DVT and had IVC filter placed on 05/05/17. Patient was evaluated by Dr. Geiger, hematology, for anemia. Patient was maintained on ferrous sulfate 325mg PO daily and will continue iron multivitamin on discharge. Patient high risk for anticoagulation per heme-onc and patient had IVC filter placed. Patient was cleared for urologic surgery by Dr. Kathleen Higgins. Patient starte don cardizem 180mg CD daily. Patient was seen by nephrology for acute renal failure. Renal function improved s/p prostatectomy. Renal ultrasound was performed which showed b/l renal parencyma disease which may indicate an element of intrinsic medical renal disease. On discharge: Patient is to follow up with Dr. Mcguire within one weeks time for removal of the Aguillon and kadeem. Patient will have to follow up with Dr. Geiger within two weeks. From a medical standpoint patient is stable and clear for discharge. Please follow up with your PMD in one weeks time. If you don't have a PMD you can come to our clinic. I have attached information about our clinic. please call to make an appointment. Please come back to the ER if symptoms worse or continue This is only a summary of patient's hospitalization for more detail please see complete record Discharge Exam - Head Exam Head Exam: NORMOCEPHALIC - Eye Exam Eye Exam: EOMI - ENT Exam ENT Exam: Mucous Membranes Moist - Respiratory Exam Respiratory Exam: Clear to PA & Lateral, NORMAL BREATHING PATTERN - Cardiovascular Exam Cardiovascular Exam: +S1, +S2, Systolic Murmur - GI/Abdominal Exam GI & Abdominal Exam: Normal Bowel Sounds, Soft, Tenderness (around surgical site ) - Exam Additional comments: aguillon catheter - Extremities Exam Extremities exam: normal inspection - Neurological Exam Neurological exam: Alert, Oriented x3 - Psychiatric Exam Psychiatric exam: Normal Affect - Skin Skin Exam: Dry, Warm Discharge Plan - Discharge Medications Prescriptions: Ampicillin Trihydrate 500 mg PO QID #40 capsule diltiaZEM CD [Cardizem CD] 180 mg PO DAILY #30 cap Docusate [Colace] 100 mg PO TID #9 cap - Follow Up Plan Condition: GOOD Disposition: HOME/ ROUTINE Instructions: Urinary Retention in Men (GEN), Benign Prostatic Hypertrophy (DC) , Suprapubic Prostatectomy (DC), Aguillon Catheter Placement and Care (DC), Urinary Leg Bag (GEN) Additional Instructions: Patient is to follow up with Dr. Mcguire within one weeks time for removal of the Aguillon and kadeem. Patient will have to follow up with Dr. Geiger within two weeks. From a medical standpoint patient is stable and clear for discharge. Please follow up with your PMD in one weeks time. If you don't have a PMD you can come to our clinic. I have attached information about our clinic. please call to make an appointment. Please come back to the ER if symptoms worse or continue Referrals: [facility] [Outside] Castro Geiger MD [Staff Provider] - 2 Weeks Alicia Mcguire MD [Staff Provider] - <Yun Rosenbaum V - Last Filed: 05/10/17 14:55> Provider - Provider Date of Admission: 05/02/17 12:24 Attending physician: Yun Rosenbaum, Hospital Course - Lab Results Lab Results: Micro Results 05/04/17 00:20 Blood Blood Culture - Final NO GROWTH AFTER 5 DAYS 05/04/17 00:20 Blood Gram Stain - Final TEST NOT PERFORMED 05/04/17 09:03 Urine,[place]illon Urine Culture - Final No Growth (<1,000 CFU/ML) 05/02/17 08:55 Urine,[place] Urine Culture - Final Vancomycin Res E.faecalis Most Recent Lab Values WBC 6.8 K/uL (4.8-10.8) 05/07/17 07:16 RBC 2.77 Mil/uL (4.40-5.90) L 05/07/17 07:16 Hgb 8.1 g/dL (12.0-18.0) L 05/07/17 07:16 Hct 24.5 % (35.0-51.0) L 05/07/17 07:16 MCV 88.6 fL (80.0-94.0) 05/07/17 07:16 MCH 29.2 pg (27.0-31.0) 05/07/17 07:16 MCHC 32.9 g/dL (33.0-37.0) L 05/07/17 07:16 RDW 15.5 % (11.5-14.5) H 05/07/17 07:16 Plt Count 213 K/uL (130-400) 05/07/17 07:16 MPV 8.6 fL (7.2-11.7) 05/07/17 07:16 Neut % (Auto) 62.8 % (50.0-75.0) 05/07/17 07:16 Lymph % (Auto) 23.5 % (20.0-40.0) 05/07/17 07:16 [place] % (Auto) 9.0 % (0.0-10.0) 05/07/17 07:16 Eos % (Auto) 4.0 % (0.0-4.0) 05/07/17 07:16 Baso % (Auto) 0.7 % (0.0-2.0) 05/07/17 07:16 Neut # 4.3 K/uL (1.8-7.0) 05/07/17 07:16 Lymph # 1.6 K/uL (1.0-4.3) 05/07/17 07:16 [place] # 0.6 K/uL (0.0-0.8) 05/07/17 07:16 Eos # 0.3 K/uL (0.0-0.7) 05/07/17 07:16 Baso # 0.0 K/uL (0.0-0.2) 05/07/17 07:16 Retic Count 1.4 % (0.5-1.5) 05/03/17 07:53 Haptoglobin 150 mg/dL (43-212) 05/03/17 07:53 PT 15.1 SECONDS (9.7-12.2) H 05/04/17 07:52 INR 1.3 05/04/17 07:52 APTT 31 SECONDS (21-34) 05/03/17 20:55 Puncture Site Lra 05/03/17 18:30 pCO2 38 mm/Hg (35-45) 05/03/17 18:30 pO2 77 mm/Hg (80-100) L 05/03/17 18:30 HCO3 27.2 mmol/L (21-28) 05/03/17 18:30 ABG pH 7.46 (7.35-7.45) H 05/03/17 18:30 ABG Total CO2 28.2 mmol/L (22-28) H 05/03/17 18:30 ABG O2 Saturation 99.4 % (95-98) H 05/03/17 18:30 ABG Base Excess 2.9 mmol/L (-2.0-3.0) 05/03/17 18:30 ABG Hemoglobin 6.9 g/dL (11.7-17.4) L 05/03/17 18:30 ABG Carboxyhemoglobin 2.7 % (0.5-1.5) H 05/03/17 18:30 POC ABG HHb (Measured) 0.6 % (0.0-5.0) 05/03/17 18:30 ABG Methemoglobin 0.9 % (0.0-3.0) 05/03/17 18:30 Bulmaro Test Pos 05/03/17 18:30 A-a O2 Difference 25.0 mm/Hg 05/03/17 18:30 Respiratory Index 0.3 05/03/17 18:30 Hgb O2 Saturation 95.8 % (95.0-98.0) 05/03/17 18:30 FiO2 21.0 % 05/03/17 18:30 Sodium 138 mmol/L (132-148) 05/07/17 07:16 Potassium 3.9 mmol/L (3.6-5.2) 05/07/17 07:16 Chloride 103 mmol/L (98-107) 05/07/17 07:16 Carbon Dioxide 25 mmol/L (22-30) 05/07/17 07:16 Anion Gap 14 (10-20) 05/07/17 07:16 BUN 10 mg/dL (9-20) 05/07/17 07:16 Creatinine 1.0 MG/DL (0.8-1.5) 05/07/17 07:16 Est GFR ( Amer) > 60 05/07/17 07:16 Est GFR (Non-Af Amer) > 60 05/07/17 07:16 POC Glucose (mg/dL) 109 mg/dL (65-110) 05/04/17 06:33 Random Glucose 103 mg/dL (75-110) 05/07/17 07:16 Hemoglobin A1c 5.5 % (4.2-6.5) 05/03/17 07:53 Calcium 8.8 mg/dl (8.6-10.4) 05/07/17 07:16 Phosphorus 3.9 mg/dL (2.5-4.5) 05/07/17 07:16 Magnesium 1.9 mg/dL (1.6-2.3) 05/07/17 07:16 Iron 17 ug/dL (49-181) L 05/02/17 22:44 TIBC 242 ug/dL (250-450) L 05/03/17 07:53 % Saturation 5 (20-55) L 05/03/17 07:53 Ferritin 113.0 ng/mL 05/03/17 07:53 Total Bilirubin 0.4 mg/dL (0.2-1.3) 05/07/17 07:16 AST 15 U/L (17-59) L 05/07/17 07:16 ALT 24 U/L (21-72) 05/07/17 07:16 Alkaline Phosphatase 60 U/L (38-126) 05/07/17 07:16 Total Protein 6.2 g/dL (6.3-8.3) L 05/07/17 07:16 Albumin 2.9 g/dL (3.5-5.0) L 05/07/17 07:16 Globulin 3.4 gm/dL (2.2-3.9) 05/07/17 07:16 Albumin/Globulin Ratio 0.9 (1.0-2.1) L 05/07/17 07:16 Triglycerides 82 mg/dL (0-149) 05/04/17 07:52 Cholesterol 122 mg/dL (0-199) 05/04/17 07:52 LDL Cholesterol Direct 74 mg/dL (0-129) 05/04/17 07:52 HDL Cholesterol 27 mg/dL (30-70) L 05/04/17 07:52 Vitamin B12 351 pg/mL (239-931) 05/03/17 07:53 Folate > 20.0 ng/mL 05/03/17 07:53 Urine Color Yellow (YELLOW) 05/02/17 12:25 Urine Clarity Hazy (Clear) 05/02/17 12:25 Urine pH 5.0 (5.0-8.0) 05/02/17 12:25 Ur Specific [place] 1.010 (1.003-1.030) 05/02/17 12:25 Urine Protein 1+ mg/dL (NEGATIVE) H 05/02/17 12:25 Urine Glucose (UA) Normal mg/dL (Normal) 05/02/17 12:25 Urine Ketones Negative mg/dL (NEGATIVE) 05/02/17 12:25 Urine Blood 3+ (NEGATIVE) H 05/02/17 12:25 Urine Nitrate Negative (NEGATIVE) 05/02/17 12:25 Urine Bilirubin Negative (NEGATIVE) 05/02/17 12:25 Urine Urobilinogen Normal mg/dL (0.2-1.0) 05/02/17 12:25 Ur Leukocyte Esterase 3+ Vince/uL (Negative) H 05/02/17 12:25 Urine WBC (Auto) 323 /hpf (0-5) H 05/02/17 12:25 Urine RBC (Auto) 58 /hpf (0-3) H 05/02/17 12:25 Urine WBC Clumps (Auto) Many /hpf (NONE) H 05/02/17 12:25 Urine Bacteria Occ (<OCC) H 05/02/17 12:25 Blood Type A POSITIVE 05/02/17 07:26 Blood Type Confirm A POSITIVE 05/02/17 07:26 Antibody Screen Negative 05/02/17 07:26 Attending/Attestation - Attestation I have personally seen and examined this patient.: Yes I have fully participated in the care of the patient.: Yes I have reviewed all pertinent clinical information, including history, physical exam and plan: Yes Notes (Text): This is late computer entry for 05/07/17. Patient seen, examined, and case discussed with day-time resident. patient seen at bedside, denies acute complaints. Eager to go home. Patient's daughter present at bedside. Ready to pickup dad from the hospital. Patient has had bowel movement and flatus. Discussed discharge instructions with both patient and patient's daughter, patient to follow-up with Dr. Alicia Mcguire (Daughter's preference for Tuesday, given she has a day off) for Aguillon removal and kadeem removal and discuss pathology results with urologist. Patient does not have Primary care doctor; recommended to establish care in the [facility] ([phone]) upon hospital discharge. Patient recommended to follow-up with heme-onc in 2 weeks. patient is high risk for chemical anticoagulation secondary to recent GI bleed in a prior hospitalization, and recent urologic procedure. Patient has an IVC filter for chronic DVT. Scripts provided upon discharge: 1) Ampicillin 500mg PO QID #40 tabs/0 refills-->advise to take yogurt (natural probiotic) and stop antibiotic if there is overt diarrhea and be evaluated by a doctor immediately 2) Cardizem CD 180mg PO once a tiera #30 tabs/1 refill for blood pressure control 3) Colace 100mg PO TID (stool softener) 4) Multivitamin supplemented with iron-->advised to patient and daughter, patient's stool may appear black with the iron; but that black stool may also be a sign of bleeding Discontinue: Norvasc (SE: Edema) This is a summary of patient's hospitalization. Please see EMR for further details. Discharge diagnoses: 1) Obstructive uropathy secondary to Enlarged Prostate s/p Suprapubic Prostatectomy POD 5 - Urology consult, Dr. Shae Mcguire; case discussed with urology - Nephrology consult, Dr. Abdalla-->help appreciated - Infectious disease, Dr. Portillo-->help appreciated - Patient has aguillon in placed-->will be discharge with aguillon and staple removal by urology with f/u outpatient urology upon discharge - Cystoscopy revealed severely enlarged prostate with outflow obstruction and pathology is abnormal-->will be discussed by urology upon outpatient follow-up - Morphine 4mg IVP Q4H PRN, pain moderate per urology - Colace 100mg PO TID - LR 150cc/hr -Surgery management regarding prostatectomy per urology (prepost/intraoperative/ postoperative)-->per urology, cannot be on therapeutic anticoagulation--> patient is s/p IVC filter POD 3 no chemical anticoagulation secondary patient is high risk for bleeding - Discharge instructions: F/u with urology (Shae Mcguire) who provided his cell and instructed patient to call at anytime, d/c with aguillon to be removed at f/u appointment and staple removal; prescriptions provided for Abx for UTI, stool softeners, and MVI 2) Deep vein thrombosis s/p IVC filter POD 3 - Left venous doppler: common femoral +DVT - Heme-onc consult: Dr. Angelic Geiger help appreciated--> patient is high risk for bleeding given recent GI bleed and recent urologic; recommend IVC filter - Vascular surgery: Dr. Gama help appreciated - s/p POD 3 IVC filter placement-->vascular surgery has signed off. -Discharge instructions: f/u in 2 weeks with heme-onc 3) Catheter Associated Urinary Tract Infection - Infectious Disease (Dr. Portillo) on board-->recommend for 7 day course of PO antibiotic (not IV Abx/PICC line cancelled) - Ampicillin 2 gram IV Q 6 Hours (active since 05/04/17) - Urine culture: +VRE (prior aguillon removed by urology on admission and replaced by urology on this admission) - Blood culture is negative and afebrile -Discharge instructions: f/u with urology; to complete 7 days of Amipicillin and advised to take with probiotic 4) Hypertension - Monitor vital signs - Cardiology Consult, Dr. Higgins, f/u recs - previously saw pt. and cleared for urologic surgery prior to admission. Stress test included in the chart (preop paperwork in chart) -Cardizem 180 mg CD once a day - Discharge instructions: Prescription: Cardizem 180 mg CD once a day (30 tabs/ 1 refill), stop Norvasc, and advocated for low salt diet 5) Lower extremity swelling - Confirmed DVT+ per venous doppler; improving - s/p IVC filter POD 3; no chemical anticoagulation secondary to high risk per heme-onc 6) Anemia, hx of Anemia - patients base line Hgb [place] [facility] [place] s/p 1 unit of PRBC transfusion - question as to recent GI bleed-->will need to get paperwork from [facility] to review prior hospitalization - Continue Ferrous Sulfate 325mg PO qD - No blood transfusion given during urologic procedure - iron studies are low for the patient-->discussed with heme-onc-->likely chronic not acute --Discharge instructions: f/u heme onc in 2 weeks; prescription provided with MVI supplemented with iron 7) Hx Diabetes Mellitus - A1c: 5.5 - Accuchecks QAC and HS - Controlled 8) Hx Hyperlipidemia - hold crestor due to prior renal failure 2/2 BPH + urinary retention - T, Cholestrol: 122, LDL: 74, HDL: 27 ---Discharge instructions: f/u PMD to determine if restart statin or not; advocated for OTC fish oil to help bring up HDL 9) Prophylaxis + DVT--> Patient is s/p IVC filter POD 3 insertion; No chemical anticoagulation at this time; patient is high risk for bleed -hold chemical anticoagulation 2/2 hx of GI bleed per review of record; and urologic procedure POD 5-->No SCDS secondary to current DVT -MVI (home med) -s/p IVC filter
== END 2017-05-07 12:45 | disposition home or self-care (01) | DRG 673 ==
LOC: C.SDS 06:12 → C.9S 12:24 → C.6T 17:47
PROVIDERS: ADMIT Hospitalist; ATTEND Hospitalist
PROC: 0VB00ZZ Excision of Prostate, Open Approach (ICD-10-PCS; principal; 2017-05-04)
PROC: 06H03DZ Insertion of Intraluminal Device into Inferior Vena Cava, Percutaneous Approach (ICD-10-PCS; 2017-05-04)
PROC: 0W9G00Z Drainage of Peritoneal Cavity with Drainage Device, Open Approach (ICD-10-PCS; 2017-05-04)
PROC: 06PY0DZ Removal of Intraluminal Device from Lower Vein, Open Approach (ICD-10-PCS; 2017-05-04)
PROC: 30233N1 Transfusion of Nonautologous Red Blood Cells into Peripheral Vein, Percutaneous Approach (ICD-10-PCS; 2017-05-04)
DX: N17.0 Acute kidney failure with tubular necrosis (principal); R65.20 Severe sepsis without septic shock; I82.402 Acute embolism and thrombosis of unspecified deep veins of left lower extremity; C61 Malignant neoplasm of prostate; I10 Essential (primary) hypertension; B95.2 Enterococcus as the cause of diseases classified elsewhere; A41.9 Sepsis, unspecified organism; N13.8 Other obstructive and reflux uropathy; D62 Acute posthemorrhagic anemia; N39.0 Urinary tract infection, site not specified; T83.518A Infection and inflammatory reaction due to other urinary catheter, initial encounter; E11.40 Type 2 diabetes mellitus with diabetic neuropathy, unspecified; R31.9 Hematuria, unspecified; N40.1 Benign prostatic hyperplasia with lower urinary tract symptoms; R33.8 Other retention of urine; E78.5 Hyperlipidemia, unspecified; Z87.891 Personal history of nicotine dependence; R26.81 Unsteadiness on feet; K21.9 Gastro-esophageal reflux disease without esophagitis; M79.89 Other specified soft tissue disorders; T46.1X5A Adverse effect of calcium-channel blockers, initial encounter; I44.0 Atrioventricular block, first degree; R00.0 Tachycardia, unspecified; T81.89XA Other complications of procedures, not elsewhere classified, initial encounter